=== PATIENT | male | born 1950 | race Caucasian/White ===

== ENCOUNTER → 2017-03-31 08:13 | Outpatient (CLI) | payer MEDICARE, OTHER, SELFPAY ==
--- NOTE | 2017-03-31 09:00 | ECHOD_ITS ---
Reason For Study: ARRHYTHMIA Procedure This was a 2D Doppler, Color Flow transthoracic echocardiogram. Exam performed in department. Left Ventricle Normal LV size. Left ventricular systolic function is normal. The estimated ejection fraction is 65 %. No regional wall motion abnormalities noted. Right Ventricle Normal RV size. Normal systolic function. Atria Normal left atrium. Normal right atrium. Mitral Valve Normal mitral valve. Tricuspid Valve Normal tricuspid valve. Aortic Valve Normal aortic valve. Trisinus/trileaflet aortic valve. Pulmonic Valve Normal pulmonic valve. Great Vessels Normal aortic root. The pulmonary artery is normal size. Normal inferior vena cava. Pericardium/Pleural No pericardial effusion. MMode/2D Measurements & Calculations LVIDd: 4.9 cm IVSd: 1.2 cm Ao root diam: 3.3 cm LVIDs: 2.8 cm LVPWd: 0.91 cm LA dimension: 2.8 cm RVDd: 3.4 cm FS: 41.9 % LAV(MOD-bp): 40.3 ml LA A4 area: 14.6 cm2 RA A4 area: 15.6 cm2 LAV(MOD-bp) Indexed: 21.4 ml/m2 LAV(MOD-sp2): 40.7 ml LAV(MOD-sp4): 38.9 ml Doppler Measurements & Calculations MV E max kiran: 68.6 cm/sec LV V1 max: 150.2 cm/sec PA V2 max: 86.5 cm/sec MV A max kiran: 46.4 cm/sec LV V1 max P.0 mmHg MV E/A: 1.5 PI end-d kiran: 95.5 cm/sec Interpretation Summary Normal LV size. Left ventricular systolic function is normal. The estimated ejection fraction is 65 %. Structurally normal valves. Ordering Physician: Marco Antonio Mary Referring Physician: KEMI GLOVER Performed By: Gail Posadas, JAYA, RVT
== END ==
PROVIDERS: Family Provider Family Medicine; PCP Family Medicine; Visit Provider Internal Medicine Cardiovascular Disease
DX: R07.9 Chest pain, unspecified (principal)
CPT/HCPCS: 93306

== ENCOUNTER 2017-04-13 22:07 | Emergency (ER) | payer MEDICARE, OTHER, SELFPAY ==
[2017-04-13 22:09] VITALS: BP 155/91; PULSE 66; RESP 14; TEMP 36.8; O2SAT 97; BMI 26.4
[2017-04-13] MEDS: Tetracaine 0.5% Ophthalmic Bottle 1 DRP EACH EYE (23:40)
[2017-04-13] MEDS: Fluorescein 1 MG STRIP 1 STRIP EACH EYE (23:41)
--- NOTE | 2017-04-14 00:29 | ED.VISSUMM ---
- ER Visit Summary Date of Service: 04/14/17 Chief Complaint: Acute left eye pain while swimming this evening History of Present Illness: The patient is a 66 M who developed acute left eye pain this evening while swimming. He did have his goggles on and contacts place. He has hard contacts. He complains of light sensitivity. He denies headache. He denies nausea vomiting. There is no family history of glaucoma. He denies any other symptoms. Past medical history of hypercholesterolemia Physical Examination: Patient's in obvious discomfort. Pupils equal round reactive. Extraocular muscles intact. He has photophobia to direct light left eye not consensual. There is no APD. He does have a pterygium. Eyes were anesthetized with tetracaine and stained with foreseen. There is obvious corneal defect noted left eye over central visual axis. The conjunctive is slightly injected on the left. Unable to perform slit-lamp exam because the slit-lamp is not working. Unable to assess intraocular pressure as the Min-Pen is nonfunctional. He was unable to see the chart since he did not bring any corrective lenses. With pinhole he had 27 right eye and unable see chart left eye anterior chamber appears normal. Unable to see the fundi on the left secondary to corneal defect. Test Results: Visual acuity as documented in the physical portion of the exam. Emergency Department Course and Treatment: Patient was treated with erythromycin ophthalmic ointment. Follow-up with ophthalmology if no improvement in 12-24 hours. Treatment Plan: Outpatient ophthalmology follow-up if no improvement in 12-24 hours Disposition: Discharge to home Impression: Left eye pain secondary to corneal abrasion This note was generated with [employer] dictation software. It may contain incorrect words, spelling, and punctuation that were not noted in review of the chart prior to signing ED Disposition - Plan for ED Patient: Disposition: Home or Assisted Living Chief Complaint: Eye Problem Instructions: Corneal Injury Referrals: Yovany Delarosa MD [Primary Care Provider] - Vishnu Agudelo MD [STAFF PHYSICIAN] - 1-2 Days if not improving
--- NOTE | 2017-04-14 00:35 | ED.DCSUM_ITS ---
- ER Visit Summary Date of Service: 04/14/17 Chief Complaint: Acute left eye pain while swimming this evening History of Present Illness: The patient is a 66 M who developed acute left eye pain this evening while swimming. He did have his goggles on and contacts place. He has hard contacts. He complains of light sensitivity. He denies headache. He denies nausea vomiting. There is no family history of glaucoma. He denies any other symptoms. Past medical history of hypercholesterolemia Physical Examination: Patient's in obvious discomfort. Pupils equal round reactive. Extraocular muscles intact. He has photophobia to direct light left eye not consensual. There is no APD. He does have a pterygium. Eyes were anesthetized with tetracaine and stained with foreseen. There is obvious corneal defect noted left eye over central visual axis. The conjunctive is slightly injected on the left. Unable to perform slit-lamp exam because the slit-lamp is not working. Unable to assess intraocular pressure as the Min- Pen is nonfunctional. He was unable to see the chart since he did not bring any corrective lenses. With pinhole he had 27 right eye and unable see chart left eye anterior chamber appears normal. Unable to see the fundi on the left secondary to corneal defect. Test Results: Visual acuity as documented in the physical portion of the exam. Emergency Department Course and Treatment: Patient was treated with erythromycin ophthalmic ointment. Follow-up with ophthalmology if no improvement in 12-24 hours. Treatment Plan: Outpatient ophthalmology follow-up if no improvement in 12-24 hours Disposition: Discharge to home Impression: Left eye pain secondary to corneal abrasion This note was generated with [employer] dictation software. It may contain incorrect words, spelling, and punctuation that were not noted in review of the chart prior to signing ED Disposition - Plan for ED Patient: Disposition: Home or Assisted Living Chief Complaint: Eye Problem Instructions: Corneal Injury Referrals: Yovany Delarosa MD [Primary Care Provider] - Vishnu Agudelo MD [STAFF PHYSICIAN] - 1-2 Days if not improving
[2017-04-14] MEDS: Erythromycin Base 1 OPTH.TUBE 1 APPLIC LEFT EYE (00:45)
[2017-04-14 00:47] VITALS: O2SAT 18
== END 2017-04-14 01:02 | disposition home or self-care (01) ==
LOC: ED 04-14 00:55
PROVIDERS: Emergency Provider Emergency Medicine; Family Provider Family Medicine; PCP Family Medicine
DX: S05.02XA Injury of conjunctiva and corneal abrasion without foreign body, left eye, initial encounter (principal); H11.002 Unspecified pterygium of left eye; X58.XXXA Exposure to other specified factors, initial encounter; Y93.9 Activity, unspecified; Y92.9 Unspecified place or not applicable; Y99.9 Unspecified external cause status; E78.00 Pure hypercholesterolemia, unspecified; Z79.82 Long term (current) use of aspirin; Z79.899 Other long term (current) drug therapy
CPT/HCPCS: 99283

== ENCOUNTER → 2018-02-11 07:54 | Outpatient (CLI) | payer MEDICARE, OTHER, SELFPAY ==
[2018-02-11 10:35] LABS: Anion Gap 7 (5-15); BUN 17 mg/dL (7-18); Calcium,Total 8.6 mg/dL (8.5-10.1); Chloride 106 mmol/L (98-107); Cholesterol 178 mg/dL (200); EST Glomerular Filtration Rate 79 mL/min (>60); Est Glom Filt Rate - Afr Amer 96 mL/min (>60); Glucose 96 mg/dL (74-106); High Density Lipoprotein 52 mg/dL; PSA,Total - Annual Screen 1.56 ng/mL (0.00-4.00); Potassium 4.4 mmol/L (3.5-5.1); Sodium Level 143 mmol/L (136-145); Triglycerides 93 mg/dL; Very Low Density Lipoprotein 19 mg/dL (5-40)
== END ==
PROVIDERS: Family Provider Family Medicine; PCP Family Medicine; Referring Provider Family Medicine; Visit Provider Family Medicine
DX: E78.00 Pure hypercholesterolemia, unspecified (principal); Z12.5 Encounter for screening for malignant neoplasm of prostate; Z83.3 Family history of diabetes mellitus
CPT/HCPCS: 36415; 80048; 80061; 84153; G0103

== ENCOUNTER 2018-05-12 06:05 | Day surgery (SDC) | payer MEDICARE, OTHER, SELFPAY ==
[2018-05-04 09:53] VITALS: BMI 26.1
--- NOTE | 2018-05-04 11:23 | RAD_ITS ---
STUDY: X-RAY CHEST REASON FOR EXAM: Male, 67 years old. Preop for catheter insertion TECHNIQUE: PA and lateral views of the chest. COMPARISON: None. FINDINGS: The lungs are clear and expanded. There is no demonstrated pleural abnormality. Normal size heart. Normal mediastinum and carol. Normal visualized pulmonary arteries. Normal visualized aortic arch and descending thoracic aorta. Normal visualized thoracic spine. Normal visualized ribs, clavicles, and shoulders. There is no demonstrated abnormality of the visualized soft tissue structures of the upper abdomen. RAD/Chest PA and Lateral IMPRESSION: Normal x-ray examination of the chest. Electronically Signed: Geoffrey Tariq DO at 10:52 EDT Tel , Service support ,
[2018-05-04 12:46] LABS: Absolute Lymphocyte Count 1.04 X10^3/ul (0.83-4.51); Absolute Neutrophil Count 3.5 X10^3/uL (2.0-7.7); Basophil# 0.01 X10^3/uL; Basophil% 0.2 % (0-1); Eosinophil# 0.12 X10^3/uL; Eosinophils% 2.3 % (0-5); Hematocrit 42.6 % (40-54); Lymphocyte # 1.04 X10^3/ul (4.0); Lymphocyte % 20.4 % (19-41); Mean Corp Hgb Conc 32.9 g/gl (32-36); Mean Corpuscular Hgb 32.2 pg (27.0-32.0); Mean Corpuscular Volume 97.9 fL (80-94); Mean Platelet Vol. 8.8 fl (6.2-12.0); Monocyte# 0.45 X10^3/uL; Monocyte% 8.8 % (0-10); Neutrophil # 3.48 X10^3/uL (2.7-7.7); Neutrophil % 68.1 % (47-70); Platelet Count 286 K/mm3 (150-450); RBC Distribution Width CV 12.4 % (11.6-14.6); Red Blood Count 4.35 M/mm3 (4.6-6.2); White Blood Count 5.1 K/mm3 (4.4-11.0)
[2018-05-04 12:47] LABS: POSITIVE COUNT NO; POSITIVE DIFFERENTIAL NO; POSITIVE MORPHOLOGY NO
[2018-05-04 13:26] LABS: Anion Gap 5 (5-15); BUN 15 mg/dL (7-18); BUN/Creat Ratio 17.4 RATIO (10-20); Calcium,Total 8.8 mg/dL (8.5-10.1); Chloride 105 mmol/L (98-107); Creatinine, Serum 0.86 mg/dL (0.70-1.30); EST Glomerular Filtration Rate 94 mL/min (>60); Est Glom Filt Rate - Afr Amer 114 mL/min (>60); Glucose 79 mg/dL (74-106); Potassium 4.4 mmol/L (3.5-5.1); Sodium Level 137 mmol/L (136-145)
[2018-05-11 07:34] VITALS: BMI 26.1
--- NOTE | 2018-05-12 09:16 | CL.D_ITS ---
Patient Name: FEI GOMEZ Study Date: 05/12/2018 Performing: Marco Antonio Mary MD Ht: 68.11 inches 173 cm : 1950 Wt: 171.96 lbs 78 kg Age: 67 Gender: male BSA: 1.92 PROCEDURE(S) PERFORMED BP85-IIB/COR/LV CLINICAL PROFILE AND INDICATIONS Indications: Suspected CAD Heart Failure: None Stress/Imaging Stress/Image Study Performed: No CAD Presentations: Symptom unlikely to be ischemic. 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 The risks and benefits of the procedure as well as a full d escription of our services here and current unavailability of surgical backup were fully explained to the patient and/or their significant other prior to the catheterization. The Timeout was completed, verifying the correct patient and procedure. The patient's procedural site was prepped and draped in the usual fashion. Local anesthetic was given subcutaneously to right groin region with Lidocaine 2%. Using a modified Seldinger technique, arterial access was obtained via the right femoral artery, a 5 Fr sheath was inserted. Left Coronary Artery selective angiography was performed in multiple views u sing a 5 Fr. JL4 catheter. Right Coronary Artery selective angiography was then performed in multiple views using a 5 Fr. 3DRC (Quinton) catheter. Left Ventriculography was performed in ANGULO projection using a 5 Fr. Pigtail catheter. LV to AO pullback pressures were then recorded.The arterial sheath was pulled and a Mynx closure device was deployed for hemostasis, groin held by Umu campoverde CORONARY ANGIOGRAPHY DOMINANCE: Right Dominant LEFT HEART ASSESSMENT Left Ventricular Ejection Fraction: by LV Gram 55 % Normal LV wall motion Normal Left Ventricular systolic function LEFT MAIN: Angiographically normal LEFT ANTERIOR DECENDING ARTERY: No significant disease noted CIRCUMFLEX ARTERY: OM 1: Distal - 70 distal before bifurcation % Stenosis RIGHT CORONARY ARTERY: No significant disease noted COMPLICATIONS No Complications PROCEDURE MEDICATIONS Versed 1 mg IV Oxygen: 2 L/min via nasal cannula SUMMARY OF HEMODYNAMIC DATA Time AIR REST ECG 06:50:11 AO 112/59 (81) SA 07:37:05 LV 100/0, 10 07:44:15 LV 100/0, 7 07:44:22 LV 87/0, 10 07:45:43 LV 95/0, 12 07:46:00 LV 101/0, 12 07:46:02 LVp 105/-2, 10 07:46:06 AOp 110/56 (78) 07:46:12 AO 112/52 (77) 07:46:48 Signed By Marco Antonio Mary MD On 05/12/2018 9:15:43 AM Marco Antonio Mary MD
== END 2018-05-12 11:04 | disposition home or self-care (01) ==
LOC: CLSP 06:06
PROVIDERS: Family Provider Family Medicine; PCP Family Medicine; Referring Provider Internal Medicine Cardiovascular Disease; Visit Provider Internal Medicine Cardiovascular Disease
DX: I25.10 Atherosclerotic heart disease of native coronary artery without angina pectoris (principal); I45.10 Unspecified right bundle-branch block; J44.9 Chronic obstructive pulmonary disease, unspecified; E78.5 Hyperlipidemia, unspecified; Z79.02 Long term (current) use of antithrombotics/antiplatelets; Z79.82 Long term (current) use of aspirin; Z79.899 Other long term (current) drug therapy
CPT/HCPCS: 36415; 71046; 80048; 85025; 93458; 99152; 99153; C1760; J7040; Q9967

== ENCOUNTER → 2018-12-23 10:21 | Outpatient (CLI) | payer MEDICARE, OTHER, SELFPAY ==
[2018-12-23 08:13] VITALS: BMI 25.8
[2018-12-23 11:57] LABS: AST(SGOT) 27 U/L (15-37); Alanine Aminotransfer ALT/SGPT 36 U/L (16-61); Albumin, Serum 3.7 g/dL (3.2-5.0); Alkaline Phosphatase 69 U/L (45-117); Bilirubin, Direct 0.12 mg/dL (0.00-0.30); Cholesterol 136 mg/dL (200); Globulin 3.4 g/dL (2.2-4.2); High Density Lipoprotein 56 mg/dL; Protein, Total 7.1 g/dL (6.4-8.2); Triglycerides 70 mg/dL; Very Low Density Lipoprotein 14 mg/dL (5-40)
== END ==
PROVIDERS: Family Provider Family Medicine; PCP Family Medicine; Referring Provider Internal Medicine Cardiovascular Disease; Visit Provider Internal Medicine Cardiovascular Disease
DX: I25.10 Atherosclerotic heart disease of native coronary artery without angina pectoris (principal); E78.5 Hyperlipidemia, unspecified
CPT/HCPCS: 36415; 80061; 80076

== ENCOUNTER → 2019-02-17 09:18 | Outpatient (CLI) | payer MEDICARE, OTHER, SELFPAY ==
[2018-12-23 08:13] VITALS: BMI 25.8
[2019-02-17 10:10] LABS: Absolute Lymphocyte Count 0.94 X10^3/uL (0.83-4.51); Basophil# 0.03 X10^3/uL; Basophil% 0.8 % (0-1); Eosinophil# 0.22 X10^3/uL; Hematocrit 41.7 % (40-54); Hemoglobin 13.9 g/dL (13.0-16.5); Lymphocyte # 0.94 X10^3/ul (4.0); Lymphocyte % 25.6 % (19-41); Mean Corp Hgb Conc 33.3 g/dL (32-36); Mean Corpuscular Hgb 32.9 pg (27.0-32.0); Mean Corpuscular Volume 98.6 fL (80-94); Mean Platelet Vol. 8.7 fl (6.2-12.0); Monocyte# 0.46 X10^3/uL; Monocyte% 12.5 % (0-10); NRBC Flagged by Analyzer 0 % (0-5); Neutrophil # 2.01 X10^3/uL (2.7-7.7); Neutrophil % 54.8 % (47-70); Platelet Count 255 K/mm3 (150-450); RBC Distribution Width CV 12.8 % (11.6-14.6); RBC Distribution Width SD 45.5 fl (35.1-43.9); Red Blood Count 4.23 M/mm3 (4.6-6.2); White Blood Count 3.7 K/mm3 (4.4-11.0)
[2019-02-17 10:49] LABS: Anion Gap 5 (5-15); BUN 16 mg/dL (7-18); BUN/Creat Ratio 16.7 RATIO (10-20); Calcium,Total 8.8 mg/dL (8.5-10.1); Chloride 107 mmol/L (98-107); Creatinine, Serum 0.96 mg/dL (0.70-1.30); EST Glomerular Filtration Rate 83 mL/min (>60); Est Glom Filt Rate - Afr Amer 101 mL/min (>60); Ferritin 32 ng/mL (26-388); Glucose 87 mg/dL (74-106); Iron 60 ug/dL (65-175); Iron Binding Capacity,Total 346 ug/dL (250-450); Potassium 4.2 mmol/L (3.5-5.1); Sodium Level 140 mmol/L (136-145); Thyroid Stim Hormone (TSH) 1.71 uIU/mL (0.358-3.74)
== END ==
PROVIDERS: Family Provider Family Medicine; PCP Family Medicine; Referring Provider Family Medicine; Visit Provider Family Medicine
DX: Z00.00 Encounter for general adult medical examination without abnormal findings (principal); E78.5 Hyperlipidemia, unspecified; E61.1 Iron deficiency; Z12.5 Encounter for screening for malignant neoplasm of prostate
CPT/HCPCS: 36415; 80048; 82728; 83540; 83550; 84153; 84443; 85025; G0103

== ENCOUNTER → 2019-04-07 11:55 | Outpatient (CLI) | payer MEDICARE, OTHER, SELFPAY ==
[2018-12-23 08:13] VITALS: BMI 25.8
--- NOTE | 2019-04-07 11:59 | RAD_ITS ---
STUDY: X-RAY CHEST REASON FOR EXAM: Male, 68 years old. DRY COUGH X SEVERAL WEEKS, BRONCHITIS TECHNIQUE: Frontal and lateral views of the chest COMPARISON: 04 May 2018 FINDINGS: The lungs are clear and expanded. There is no demonstrated pleural abnormality. Normal size heart. Normal mediastinum and carol. Normal visualized pulmonary arteries. Normal visualized aortic arch and descending thoracic aorta. Normal visualized thoracic spine. Normal visualized ribs, clavicles, and shoulders. There is no demonstrated abnormality of the visualized soft tissue structures of the upper abdomen. RAD/Chest PA and Lateral IMPRESSION: Normal x-ray examination of the chest. Electronically Signed: Andrea Loera, at 19:13 EST Tel , Service support ,
== END ==
PROVIDERS: PCP Family Medicine; Referring Provider Family Medicine; Visit Provider Family Medicine
DX: J20.9 Acute bronchitis, unspecified (principal)
CPT/HCPCS: 71046

== ENCOUNTER 2019-10-01 09:14 | Emergency (ER) | payer MEDICARE, OTHER, SELFPAY ==
[2018-12-23 08:13] VITALS: BMI 25.8
[2019-10-01 09:15] VITALS: BP 137/99; PULSE 75; RESP 18; TEMP 36.8; O2SAT 98; BMI 25.7
--- NOTE | 2019-10-01 09:34 | EKG12_ITS ---
Test Reason : NEURO Blood Pressure : / mmHG Vent. Rate : 068 BPM Atrial Rate : 068 BPM P-R Int : 156 ms QRS Dur : 128 ms QT Int : 392 ms P-R-T Axes : 051 -41 024 degrees QTc Int : 416 ms Normal sinus rhythm Left axis deviation Right bundle branch block Abnormal ECG Confirmed by SRAVAN BOURGEOIS, MARCOS ([id number]), non linear editor ZULAY YANEZ ([id number]) on 10/03/2019 2:37:22 PM Referred By: SORAYA Confirmed By:MARCOS HINSON MD
--- NOTE | 2019-10-01 09:34 | RAD_ITS ---
STUDY: X-RAY CHEST REASON FOR EXAM: Male, 68 years old. STROKE PROTOCOL -- head and neck pain -- no chest complaints TECHNIQUE: Single AP portable view of the chest. COMPARISON: Prior comparison studies are not available for review at this time. FINDINGS: The lungs are clear and expanded. There is no demonstrated pleural abnormality. Normal size heart. Normal mediastinum and carol. Normal visualized pulmonary arteries. Normal visualized aortic arch and descending thoracic aorta. There are mild degenerative changes in the thoracic spine. Normal visualized ribs, clavicles, and shoulders. There is no demonstrated abnormality of the visualized soft tissue structures of the upper abdomen. RAD/Chest 1 View IMPRESSION: No active pulmonary disease. Electronically Signed: Adonay Bowman MD at 11:13 EDT Tel , Service support ,
--- NOTE | 2019-10-01 09:34 | CT_ITS ---
STUDY: CT BRAIN WITHOUT CONTRAST REASON FOR EXAM: Male, 68 years old. Head and neck injury, imbalance. RADIATION DOSAGE (If Supplied By Facility): CTDIvol = ( 44.99 ) mGy, DLP = ( 812.98 ) mGycm TECHNIQUE: Transaxial CT imaging of the brain was performed without administration of intravenous contrast material. Individualized dose optimization techniques were used for this CT. COMPARISON: No relevant priors. FINDINGS: Normal soft tissue structures. Normal calvarium. Normal size ventricles and extra-axial spaces for the patient''s age. There are areas of decreased attenuation within the white matter tracts of the supratentorial brain, consistent with microvascular disease changes. Normal basal ganglia and thalami. Normal brainstem. Normal cerebellum. There is no intracranial hemorrhage. There are no findings of an acute ischemic infarction. Normal visualized paranasal sinuses. CT/Brain/Head without Contrast IMPRESSION: No acute intracranial process. N.B. : The above information has been verbally conveyed by Adonay Bowman MD to Mushtaq Larson MD, on 10/01/2019 09:53:07 (ET). Electronically Signed: Adonay Bowman MD at 9:54 EDT Tel , Service support ,
--- NOTE | 2019-10-01 09:35 | CT_ITS ---
STUDY: CTA HEAD AND NECK WITH CONTRAST REASON FOR EXAM: Male, 68 years old. In the neck injury, imbalance, possible dissection. RADIATION DOSAGE (If Supplied By Facility): CTDIvol = ( 21.52 ) mGy, DLP = ( 737.28 ) mGycm TECHNIQUE: CT angiography was performed with a multi-detector CT scanner. Data acquisition was obtained from the skull base through the vertex following intravenous administration of IV [id number] 100ML. MIP images were reconstructed from the axial data set. Post-processing of the angiographic images was performed, with multiplanar reformation and 3D reconstruction. Individualized dose optimization techniques were used for this CT. COMPARISON: No relevant priors. FINDINGS: Normal bilateral petrous carotid arteries. There is calcified plaque formation of the right cavernous carotid artery, without a cross-sectional luminal stenosis. There is calcified plaque formation of the left cavernous carotid artery, with a moderate stenosis (50-75%). Normal right A1 segments of the anterior cerebral artery. There is hypoplastic development of the left A1 segment of the anterior cerebral arteries with an atretic but intact artery. Normal intact anterior communicating artery (ACOM). Normal bilateral A2 segments of the anterior cerebral arteries. Normal right M1 and M2 segments of the middle cerebral arteries, with a normal M1 bifurcation. Normal left M1 and M2 segments of the middle cerebral arteries, with a normal M1 bifurcation. There is non-visualization of the right posterior communicating artery (PCOM). There is non-visualization of the left posterior communicating artery (PCOM). Normal bilateral vertebral arteries. Normal basilar artery with a normal basilar bifurcation. The visualized bilateral superior cerebellar (SCA) arteries are normal. There is no demonstrated definite aneurysm of the [place]. AORTIC ARCH: Normal visualized aortic arch. Normal origins of the brachiocephalic, left common carotid, and left subclavian arteries. RIGHT CAROTID ARTERIES: Normal right common carotid artery (CCA). Normal right common carotid bulb. Normal origin of the right internal carotid (ICA) artery without a hemodynamically significant stenosis. Normal visualized cervical portion of the right internal carotid artery. Normal origin of the right external carotid artery (ECA). LEFT CAROTID ARTERIES: Normal left common carotid artery (CCA). Normal left common carotid bulb. Normal origin of the left internal carotid (ICA) artery without a hemodynamically significant stenosis. Normal visualized cervical portion of the left internal carotid artery. Normal origin of the left external carotid artery (ECA). VERTEBRAL ARTERIES: Normal bilateral vertebral arteries. CT/CTA Head AND Neck W/ Contrast IMPRESSION: 1. 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 2. 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 3. Unremarkable common and internal carotid arteries without evidence of dissection or significant stenosis. 4. Patent bilateral vertebral arteries. N.B. : The above information has been verbally conveyed by Adonay Bowman MD to Mushtaq Larson MD, on 10/01/2019 10:05:55 (ET). Electronically Signed: Adonay Bowman MD at 10:08 EDT Tel , Service support ,
--- NOTE | 2019-10-01 09:42 | NURSING ---
FACESHEET FAXED TO [facility]
[2019-10-01 09:46] VITALS: BP 144/81; PULSE 84; RESP 24; O2SAT 98
[2019-10-01 09:48] LABS: Absolute Neutrophil Count 5.8 X10^3/uL (2.0-7.7); Basophil# 0.01 X10^3/uL; Basophil% 0.1 % (0-1); Eosinophil# 0.17 X10^3/uL; Eosinophils% 2.2 % (0-5); Hematocrit 38.3 % (40-54); Hemoglobin 12.8 g/dL (13.0-16.5); Lymphocyte % 12.7 % (19-41); Mean Corp Hgb Conc 33.4 g/dL (32-36); Mean Corpuscular Hgb 33.2 pg (27.0-32.0); Mean Corpuscular Volume 99.2 fL (80-94); Mean Platelet Vol. 8.6 fl (6.2-12.0); Monocyte# 0.83 X10^3/uL; Monocyte% 10.6 % (0-10); NRBC Flagged by Analyzer 0 % (0-5); Neutrophil # 5.82 X10^3/uL (2.7-7.7); Platelet Count 227 K/mm3 (150-450); RBC Distribution Width SD 43.8 fl (35.1-43.9); Red Blood Count 3.86 M/mm3 (4.6-6.2); White Blood Count 7.9 K/mm3 (4.4-11.0)
--- NOTE | 2019-10-01 09:52 | ED.VIS.STROK ---
History of Present Illness Chief Complaint: Headache Informant: Patient, Significant Other Onset: Today - Patient reports slurred speech this morning at 0815. He also reports problem with his balance and had trouble walking. After I walked out of the room and initiated the stroke order set his nurse informed that the believes he may have had symptoms at 645 this morning. Patient did not feel he had any problems with his speech upon awakening or prior to 0815., Days - ThursdaySeptember 26. Context: Sudden Onset Timing: Continuous - Pain in the posterior neck and occipital area has been present since Thursday. Quality and Location: Slurred Speech Onset: Previously documented Current Severity: Mild Maximum Severity: Mild Worsened by: Uncertain Relieved by: Nothing Associated Symptoms: Headache Narrative: Patient is a 68-year-old male who presents to triage with chief complaint of posterior neck pain and occipital headache. The neck pain started ThursdaySeptember 26 after he mowed a steep incline on tractor. He denies direct trauma. He did have an unsteady ride. He reported difficulty sleeping. He did see his primary care physician was placed on a muscle relaxant. The neck pain and headache has not resolved since onset. This morning he described dizziness which when asked to specify he define trouble with his balance. He also had trouble using his fingers with fine coordination. He felt his speech was normal upon awakening early this morning. He and his initially stated speech was slurred at 0815. They state it is better. After I had completed my history and physical I was made aware that believes his slurred speech may have started at 0645. Patient denies double vision blurred vision or loss of vision. Patient denies cardiac or respiratory symptoms. He denies symptoms. He is not on an anticoagulant. There is no history of direct trauma to the head or neck. Prior similar symptoms: No Recent Illness/Hospitalization: Yes - Past Medical History (1) Atherosclerosis of coronary artery of [place] heart without angina pectoris Status: Chronic Comment: Distal circumflex disease in a small vessel (2) Hyperlipidemia Status: Chronic Past Medical History - Allergies and Home Meds Allergies/Adverse Reactions: Allergies No Known Allergies Allergy (Verified 10/01/19 09:15) Primary Care Physician: Yovany Rios MD [Primary Care Provider] - Prior records reviewed: Yes Surgical History: noncontributory Lives: Spouse/ Significant Other Smoking Status: Never smoker Alcohol: None Drugs: None Review of Systems General: Denies: Chills, Fever, Malaise Eyes: Denies: Visual changes - bilaterally, Blurred Vision - bilaterally, Diplopia ENT: Denies: Bilateral ear pain, Rhinorrhea, Sore throat Cardiovascular: Denies: Chest pain, Palpitations Respiratory: Denies: Dyspnea, Cough, Sputum, Dyspnea on exertion Gastrointestinal: Denies: Abdominal pain, Nausea, Vomiting, Diarrhea Genitourinary: Denies: Dysuria, Hematuria, Frequency Musculoskeletal: Denies: Myalgias, Arthralgias, Neck pain, Back pain Skin: Denies: Rash, Wounds Neurological: Reports: Headache. Denies: Weakness, Parasthesia, Numbness, -, - - Slurred speech and problems with balance this morning. Endocrine: Denies: Polyuria, Polydipsia Hematologic: Denies: Easy bruising, Easy bleeding STROKE Vital Signs/Narrative: Vital Signs Temp Pulse Resp BP Pulse Ox 10/01/19 09:15 98.3 F 75 18 137/99 H 98 Inital Vital Signs reviewed: Yes - NIHSS Initial 1a Level of Consciousness: 0 1b LOC Questions (Score 2 if aphasic/stupor): 0 1c LOC Commands (Only score 1st attempt): 0 2 Best Gaze (If aphasic, use reflexive mvmts.): 0 3 Visual: 0 4 Facial Palsy: 0 5 Motor Arm Right (UN = amputation/fusion): 0 5 Motor Arm Left: 0 6 Motor Leg Right: 0 6 Motor Leg Left: 0 7 Limb ataxia (Only + if out of proportion): 0 8 Sensory (Aphasia/stupor=0 or 1, coma=2): 0 10 Dysarthria (mute, coma=2, intubated=UN): 1 11 Extinction and Inattention (only scored if +): 0 Total Score: 1 General: Well nourished, Well developed Head: Normocephalic, Atraumatic Eyes: Perrl, EOMI. Negative for: Pale conjunctiva, Scleral icterus ENT: Moist mucous membranes, No rhinorrhea Neck: Supple, Nontender, No lymphadenopathy, No JVD Cardiovascular: Regular rate, Regular rhythm, No murmurs, Normal S1, Normal S2 Respiratory: No distress, CTA bilaterally Abdomen: Soft, Nontender, Nondistended, Normal bowel sounds, No masses Back: Nontender, Normal Inspection Extremities: Nontender, No edema Skin: Normal color, No rash Neurological: Alert, Oriented x3, Cranial nerves II-XII grossly intact, Normal Strength, Normal Sensation, - - Finger-nose to finger and cajx-sy-eqmu is normal.. Negative for: Normal Gait - And then gait is abnormal. He has difficulty maintaining his balance and appears to preferentially fall to the right. Psychological: Normal affect Diagnostic/Tx/Re-eval Impressions Brain CT 10/01/19 09:34 IMPRESSION: No acute intracranial process. N.B. : The above information has been verbally conveyed by Adonay Bowman MD to Mushtaq Larson MD, on 10/01/2019 09:53:07 (ET). Electronically Signed: Adonay Bowman MD at 9:54 EDT Tel , Service support , ADDENDUM: 10/01/19 1001 IMPRESSION: No acute intracranial process. N.B. : The above information has been verbally conveyed by Adonay Bowman MD to Mushtaq Larson MD, on 10/01/2019 09:53:07 (ET). Electronically Signed: Adonay Bowman MD at 9:54 EDT Tel , Service support , Head/Neck CTA 10/01/19 09:35 IMPRESSION: 1. 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 2. 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 3. Unremarkable common and internal carotid arteries without evidence of dissection or significant stenosis. 4. Patent bilateral vertebral arteries. N.B. : The above information has been verbally conveyed by Adonay Bowman MD to Mushtaq Larson MD, on 10/01/2019 10:05:55 (ET). Electronically Signed: Adonay Bowman MD at 10:08 EDT Tel , Service support , 10/01/19 09:34 Brain/Head without Contrast [CT] Stat Chest 1 View [RAD] Stat 10/01/19 09:35 CTA Head AND Neck W/ Contrast [CT] Stat Laboratory Results 10/01/19 10/01/19 10/01/19 09:40 09:40 09:40 WBC 7.9 RBC 3.86 L Hgb 12.8 L Hct 38.3 L MCV 99.2 H MCH 33.2 H MCHC 33.4 RDW Std Deviation 43.8 RDW Coeff of Epifanio 12.0 Plt Count 227 MPV 8.6 Immature Gran % (Auto) 0.400 Neut % (Auto) 74.0 H Lymph % (Auto) 12.7 L Bay % (Auto) 10.6 H Eos % (Auto) 2.2 Baso % (Auto) 0.1 Absolute Neuts (auto) 5.8 Absolute Lymphs (auto) 1.00 Nucleated RBC % 0 PT 13.5 INR 1.1 APTT 25.0 Sodium 140 Potassium 4.2 Chloride 108 H Carbon Dioxide 29.0 Anion Gap 3 L BUN 15 Creatinine 0.95 Estim Creat Clear Calc 73.00 Est GFR (MDRD) Af Amer 102 Est GFR (MDRD) Non-Af 84 BUN/Creatinine Ratio 15.8 Glucose 104 Calcium 8.7 Troponin I < 0.015 POC Glucose 10/01/19 09:49 WBC RBC Hgb Hct MCV MCH MCHC RDW Std Deviation RDW Coeff of Epifanio Plt Count MPV Immature Gran % (Auto) Neut % (Auto) Lymph % (Auto) Bay % (Auto) Eos % (Auto) Baso % (Auto) Absolute Neuts (auto) Absolute Lymphs (auto) Nucleated RBC % PT INR APTT Sodium Potassium Chloride Carbon Dioxide Anion Gap BUN Creatinine Estim Creat Clear Calc Est GFR (MDRD) Af Amer Est GFR (MDRD) Non-Af BUN/Creatinine Ratio Glucose Calcium Troponin I POC Glucose 104 - Medical Decision Making Stroke Team Activated: Yes Reviewed Inclusion/Exclusion criteria: Yes Was Patient considered for Endovascular Intervention?: No IV Alteplase (t-PA) Administered: No No contraindications for IV Alteplase (t-PA) administration.: No - Surgeon for dissection Alteplase (t-PA) risks, benefits, alternative discussed: No Differential diagnosis includes adverse response to pain medicine, cervical strain with tension headache, vertebral dissection, TIA/CVA. Stroke order set was initiated. Spoke with Dr. Agee the stroke neurologist from [facility]. He recommends MRI of the brain and neck. There is still a small possibility of dissection since the event occurred Thursday. He does agree with aspirin. Hospitalist was paged for observation status to have MRI of the head and neck. ED Disposition - Plan for ED Patient: Disposition: Acute Care Hospital [facility] Diagnosis: Dysarthria, Balance problem Referrals: Yovany Rios MD [Primary Care Provider] -
[2019-10-01 09:56] VITALS: BP 143/89; BP 144/81; PULSE 77; PULSE 82; RESP 15; RESP 19; O2SAT 97; O2SAT 98
[2019-10-01 09:56] LABS: Bedside Glucose 104 mg/dL (70-110)
[2019-10-01 09:57] LABS: International Normalized Ratio 1.1; Prothrombin Time (Protime)PT. 13.5 SECONDS (11.7-14.9)
[2019-10-01 10:05] VITALS: BP 143/89; PULSE 73; RESP 22; O2SAT 98
[2019-10-01 10:07] LABS: Anion Gap 3 (5-15); BUN 15 mg/dL (7-18); BUN/Creat Ratio 15.8 RATIO (10-20); Calcium,Total 8.7 mg/dL (8.5-10.1); Chloride 108 mmol/L (98-107); Creatinine, Serum 0.95 mg/dL (0.70-1.30); EST Glomerular Filtration Rate 84 mL/min (>60); Est Glom Filt Rate - Afr Amer 102 mL/min (>60); Glucose 104 mg/dL (74-106); Potassium 4.2 mmol/L (3.5-5.1); Sodium Level 140 mmol/L (136-145)
--- NOTE | 2019-10-01 10:18 | NURSING ---
DR ELMORE FOR DR SHELDON
--- NOTE | 2019-10-01 10:23 | MRI_ITS ---
STUDY: MRA NECK WITH AND WITHOUT CONTRAST REASON FOR EXAM: Male, 68 years old. UNSTEADY GAIT, EVALUATE FOR CAROTID DISSECTION TECHNIQUE: 3-D [id number] (TOF) imaging was performed in an 1.5 T MRI scanner. IV DOTAREM 15CC was administered for the contrast enhanced images. COMPARISON: Comparison is made with CTA examination from 10/01/2019 FINDINGS: The origin of the great vessels are patent. Bilateral common carotid arteries are patent. The carotid bifurcations are patent. The extracranial segments of the internal carotid arteries appear patent. Visualized segments of the vertebral arteries are patent. Essentially codominant vertebral arteries are seen. IMPRESSION: No evidence for hemodynamically significant extracranial carotid artery stenosis, dissection or occlusion Electronically Signed: Jacky Hull, at 12:26 EDT Tel , Service support , MRI/MRA Neck WITH and W/O Contrast
--- NOTE | 2019-10-01 10:23 | MRI_ITS ---
STUDY: MRI BRAIN WITHOUT CONTRAST REASON FOR EXAM: Male, 68 years old. UNSTEADY GAIT, EVALUATE FOR CAROTID DISSECTION TECHNIQUE: Standardized multiplanar fat and water weighted pulse sequences were obtained. COMPARISON: None. FINDINGS: No evidence for shift of midline structures, mass effect or compression of ventricles noted. No acute intracranial hemorrhage. No abnormal intracranial fluid collections. The basal cisterns are patent. No discrete mass or ischemic insult in the posterior fossa. Pituitary stalk and optic chiasm are within normal limits. Ventricular system appears unremarkable. Scattered foci of T2/FLAIR hyperintensity in the periventricular and subcortical white matter seen which are nonspecific in imaging appearance however likely related with chronic small vessel disease in light of patient''s provided chronologic age. Mild mucosal thickening of the ethmoid vessels. IMPRESSION: No evidence for acute or subacute ischemic infarction. No evidence for intracranial mass, acute hemorrhage or hydrocephalus. Scattered nonspecific foci of T2/FLAIR hyperintensity in the periventricular and subcortical white matter seen which likely related with chronic small vessel disease. Electronically Signed: Jacky Hull, at 12:21 EDT Tel , Service support , MRI/Brain without Contrast
--- NOTE | 2019-10-01 12:18 | ED.RN ---
per dr corcoran stroke scale is not necessary to continue
--- NOTE | 2019-10-01 12:42 | ED.DCSUM_ITS ---
- ER Visit Summary Date of Service: 10/01/19 Chief Complaint: [] History of Present Illness: The patient is a 68 M [] Physical Examination: [] Test Results: [] Emergency Department Course and Treatment: [] Treatment Plan: [] Disposition: [] Impression: [] This note was generated with [employer] dictation software. It may contain incorrect words, spelling, and punctuation that were not noted in review of the chart prior to signing ED Disposition - Plan for ED Patient: Disposition: Home or Assisted Living Diagnosis: Dysarthria, Balance problem, Adverse drug reaction Instructions: ED Drug React Adverse Other Referrals: Yovany Rios MD [Primary Care Provider] - As Needed Additional Instructions: Discontinue taking the muscle relaxant. Use ice and woik-xwz-bdeekql anti- inflammatory meds (ibuprofen or Aleve).
[2019-10-01 12:54] VITALS: BP 144/85; PULSE 66; RESP 17
== END 2019-10-01 12:55 | disposition home or self-care (01) ==
PROVIDERS: Emergency Provider Emergency Medicine; PCP Family Medicine
DX: R47.1 Dysarthria and anarthria (principal); R26.89 Other abnormalities of gait and mobility; R26.2 Difficulty in walking, not elsewhere classified; T48.205A Adverse effect of unspecified drugs acting on muscles, initial encounter; Y92.9 Unspecified place or not applicable; R51 Headache; M54.2 Cervicalgia; I25.10 Atherosclerotic heart disease of native coronary artery without angina pectoris; E78.5 Hyperlipidemia, unspecified; Z79.82 Long term (current) use of aspirin; Z79.899 Other long term (current) drug therapy
CPT/HCPCS: 70450; 70496; 70498; 70549; 70551; 71045; 80048; 82962; 84484; 85025; 85610; 85730; 93005; 99285; A9575; Q9967; A4216

== ENCOUNTER → 2019-12-27 09:46 | Outpatient (CLI) | payer MEDICARE, OTHER, SELFPAY ==
[2019-12-27 07:31] VITALS: BMI 25.4
[2019-12-27 10:55] LABS: AST(SGOT) 24 U/L (15-37); Alanine Aminotransfer ALT/SGPT 36 U/L (16-61); Albumin, Serum 3.6 g/dL (3.2-5.0); Alkaline Phosphatase 77 U/L (45-117); Bilirubin, Direct 0.12 mg/dL (0.00-0.30); Cholesterol 143 mg/dL (200); Globulin 3.5 g/dL (2.2-4.2); High Density Lipoprotein 45 mg/dL; Protein, Total 7.1 g/dL (6.4-8.2); Triglycerides 89 mg/dL; Very Low Density Lipoprotein 18 mg/dL (5-40)
== END ==
PROVIDERS: PCP Family Medicine; Referring Provider Internal Medicine Cardiovascular Disease; Visit Provider Internal Medicine Cardiovascular Disease
DX: I25.10 Atherosclerotic heart disease of native coronary artery without angina pectoris (principal); E78.5 Hyperlipidemia, unspecified
CPT/HCPCS: 36415; 80061; 80076

== ENCOUNTER → 2020-02-21 09:24 | Outpatient (CLI) | payer MEDICARE, OTHER, SELFPAY ==
[2019-12-27 07:31] VITALS: BMI 25.4
[2020-02-21 12:34] LABS: Absolute Lymphocyte Count 0.82 X10^3/uL (0.83-4.51); Absolute Neutrophil Count 1.8 X10^3/uL (2.0-7.7); Basophil# 0.02 X10^3/uL; Basophil% 0.6 % (0-1); Eosinophil# 0.18 X10^3/uL; Eosinophils% 5.7 % (0-5); Hematocrit 42.3 % (40-54); Hemoglobin 13.4 g/dL (13.0-16.5); Lymphocyte # 0.82 X10^3/ul (4.0); Mean Corp Hgb Conc 31.7 g/dL (32-36); Mean Corpuscular Hgb 32.2 pg (27.0-32.0); Mean Corpuscular Volume 101.7 fL (80-94); Monocyte# 0.32 X10^3/uL; Monocyte% 10.2 % (0-10); NRBC Flagged by Analyzer 0 % (0-5); Neutrophil # 1.81 X10^3/uL (2.7-7.7); Neutrophil % 57.5 % (47-70); Platelet Count 259 K/mm3 (150-450); RBC Distribution Width CV 12.9 % (11.6-14.6); Red Blood Count 4.16 M/mm3 (4.6-6.2); White Blood Count 3.2 K/mm3 (4.4-11.0)
[2020-02-21 12:44] LABS: Ferritin 25 ng/mL (26-388); Iron 197 ug/dL (65-175); Iron Binding Capacity,Total 362 ug/dL (250-450); PSA,Total - Annual Screen 1.77 ng/mL (0.00-4.00)
== END ==
PROVIDERS: PCP Family Medicine; Referring Provider Family Medicine; Visit Provider Family Medicine
DX: E61.1 Iron deficiency (principal); Z12.5 Encounter for screening for malignant neoplasm of prostate
CPT/HCPCS: 36415; 82728; 83540; 83550; 84153; 85025; G0103

== ENCOUNTER → 2020-08-02 07:04 | Outpatient (CLI) | payer MEDICARE, OTHER, SELFPAY ==
[2019-12-27 07:31] VITALS: BMI 25.4
[2020-08-02 09:03] LABS: AST(SGOT) 24 U/L (15-37); Alanine Aminotransfer ALT/SGPT 30 U/L (16-61); Albumin, Serum 3.8 g/dL (3.2-5.0); Alkaline Phosphatase 74 U/L (45-117); Bilirubin, Direct 0.22 mg/dL (0.00-0.30); Cholesterol 146 mg/dL (200); Globulin 3.4 g/dL (2.2-4.2); High Density Lipoprotein 53 mg/dL; Protein, Total 7.2 g/dL (6.4-8.2); Triglycerides 42 mg/dL; Very Low Density Lipoprotein 8 mg/dL (5-40)
== END ==
PROVIDERS: PCP Family Medicine; Referring Provider Internal Medicine Cardiovascular Disease; Visit Provider Internal Medicine Cardiovascular Disease
DX: E78.5 Hyperlipidemia, unspecified (principal); E78.00 Pure hypercholesterolemia, unspecified
CPT/HCPCS: 36415; 80061; 80076

== ENCOUNTER → 2020-08-16 09:50 | Outpatient (CLI) | payer MEDICARE, OTHER, SELFPAY ==
[2019-12-27 07:31] VITALS: BMI 25.4
[2020-08-16 10:29] LABS: Hematocrit 39.2 % (40-54); Hemoglobin 12.9 g/dL (13.0-16.5); Mean Corp Hgb Conc 32.9 g/dL (32-36); Mean Corpuscular Hgb 31.4 pg (27.0-32.0); Mean Corpuscular Volume 95.4 fL (80-94); Mean Platelet Vol. 8.5 fl (6.2-12.0); Platelet Count 237 K/mm3 (150-450); Red Blood Count 4.11 M/mm3 (4.6-6.2); White Blood Count 3.2 K/mm3 (4.4-11.0)
[2020-08-16 10:55] LABS: Anion Gap 4 (5-15); BUN 19 mg/dL (7-18); BUN/Creat Ratio 19.7 RATIO (10-20); Calcium,Total 8.3 mg/dL (8.5-10.1); Chloride 103 mmol/L (98-107); Creatinine, Serum 0.96 mg/dL (0.70-1.30); EST Glomerular Filtration Rate 82 mL/min (>60); Est Glom Filt Rate - Afr Amer 100 mL/min (>60); Glucose 100 mg/dL (74-106); Potassium 4.4 mmol/L (3.5-5.1); Sodium Level 137 mmol/L (136-145)
[2020-08-16 17:04] LABS: Thyroid Stim Hormone (TSH) 1.84 uIU/mL (0.358-3.74); Troponin-I HS 6.3 pg/mL (3.0-78.5)
== END ==
PROVIDERS: Physician Assistant Medical; PCP Family Medicine; Visit Provider Internal Medicine Cardiovascular Disease
DX: E78.5 Hyperlipidemia, unspecified (principal); I25.10 Atherosclerotic heart disease of native coronary artery without angina pectoris; I45.10 Unspecified right bundle-branch block; M54.2 Cervicalgia; R53.83 Other fatigue; R07.9 Chest pain, unspecified
CPT/HCPCS: 36415; 80048; 84443; 84484; 85027

== ENCOUNTER → 2020-08-23 06:11 | Outpatient (CLI) | payer MEDICARE, OTHER, SELFPAY ==
[2020-08-16 13:03] VITALS: BMI 26.3
--- NOTE | 2020-08-23 12:00 | STRESSREP_ITS ---
Stress Test Report Exercise myocardial perfusion stress test. 69-year-old male with a history of chest pain. Stress protocol: Resting EKG demonstrates sinus bradycardia with a rate of 47 bpm normal intervals are noted resting blood pressure is 110/78 mmHg. The patient exercised according to regular Nick protocol for total duration of 10 minutes and 15 seconds. The maximum heart rate attained was 148 bpm which was 97% of maximum predicted heart rate the maximum workload was 12.1 metabolic equivalents. At rest there were no ST or T wave changes noted to suggest ischemia and at peak exercise upsloping ST changes were noted with did not meet the criteria for ischemia. No clinical angina was noted the test was terminated due to the target heart rate being achieved. The peak blood pressure was 160/80 mmHg which is a normal blood pressure response to exercise. No arrhythmias were noted. Myocardial perfusion protocol. 11.9 mCi of technetium 99m sestamibi was injected at rest. The patient exercised according to regular Nick protocol. At peak exercise 34.8 mCi of technetium 99m sestamibi was injected stress images were obtained stress and res t images were reconstructed and compared in the short axis. Gated images were also obtained. Perfusion SPECT analysis: Review of the stress images demonstrate normal uptake of tracer noted in all ar eas of the myocardium. The resting images similarly demonstrate normal uptake of tracer noted in all areas of the myocardium. No areas of reversibility are noted to suggest ischemia and no previous infarct is noted. Gated SPECT analysis: The gated ejection fraction is 60%. Conclusion: Normal exercise myocardial perfusion stress test at a high workload. Preserved ejection fraction.
== END ==
PROVIDERS: PCP Family Medicine; Referring Provider Physician Assistant Medical; Visit Provider Physician Assistant Medical
DX: I25.10 Atherosclerotic heart disease of native coronary artery without angina pectoris (principal); M54.2 Cervicalgia; R53.83 Other fatigue
CPT/HCPCS: 78452; 93017; A9500; A4216

== ENCOUNTER → 2020-08-28 08:19 | Outpatient (CLI) | payer MEDICARE, OTHER, SELFPAY ==
[2020-08-16 13:03] VITALS: BMI 26.3
[2020-08-28 10:24] LABS: Absolute Lymphocyte Count 0.87 X10^3/uL (0.83-4.51); Absolute Neutrophil Count 1.9 X10^3/uL (2.0-7.7); Basophil# 0.01 X10^3/uL; Basophil% 0.3 % (0-1); Eosinophil# 0.13 X10^3/uL; Eosinophils% 3.8 % (0-5); Hematocrit 42.3 % (40-54); Hemoglobin 13.5 g/dL (13.0-16.5); Lymphocyte # 0.87 X10^3/ul (0.83-4.51); Lymphocyte % 25.4 % (19-41); Mean Corp Hgb Conc 31.9 g/dL (32-36); Mean Platelet Vol. 8.6 fl (6.2-12.0); Monocyte# 0.48 X10^3/uL; NRBC Flagged by Analyzer 0 % (0-5); Neutrophil # 1.92 X10^3/uL (2.7-7.7); Neutrophil % 56.2 % (47-70); Platelet Count 269 K/mm3 (150-450); RBC Distribution Width CV 13.2 % (11.6-14.6); RBC Distribution Width SD 47.2 fl (35.1-43.9); Red Blood Count 4.36 M/mm3 (4.6-6.2); White Blood Count 3.4 K/mm3 (4.4-11.0)
[2020-08-28 11:45] LABS: Ferritin 16 ng/mL (26-388); Iron 56 ug/dL (65-175); Iron Binding Capacity,Total 398 ug/dL (250-450)
== END ==
PROVIDERS: PCP Family Medicine; Referring Provider Family Medicine; Visit Provider Family Medicine
DX: D64.9 Anemia, unspecified (principal)
CPT/HCPCS: 36415; 82728; 82746; 83540; 83550; 85025

== ENCOUNTER → 2021-01-17 06:42 | Outpatient (CLI) | payer MEDICARE, OTHER, SELFPAY ==
[2021-01-17 07:55] LABS: Absolute Lymphocyte Count 0.48 X10^3/uL (0.83-4.51); Absolute Neutrophil Count 3.7 X10^3/uL (2.0-7.7); Basophil# 0.03 X10^3/uL; Basophil% 0.6 % (0-1); Eosinophils% 2.1 % (0-5); Hematocrit 39.1 % (40-54); Hemoglobin 12.8 g/dL (13.0-16.5); Lymphocyte # 0.48 X10^3/ul (0.83-4.51); Lymphocyte % 9.9 % (19-41); Mean Corp Hgb Conc 32.7 g/dL (32-36); Mean Corpuscular Volume 94.7 fL (80-94); Mean Platelet Vol. 8.7 fl (6.2-12.0); Monocyte# 0.52 X10^3/uL; Monocyte% 10.7 % (0-10); NRBC Flagged by Analyzer 0 % (0-5); Neutrophil % 76.5 % (47-70); POSITIVE DIFFERENTIAL YES; Platelet Count 258 K/mm3 (150-450); RBC Distribution Width CV 12.9 % (11.6-14.6); RBC Distribution Width SD 44.8 fl (35.1-43.9); Red Blood Count 4.13 M/mm3 (4.6-6.2); White Blood Count 4.8 K/mm3 (4.4-11.0)
[2021-01-17 08:11] LABS: Differential Indicated SCAN CRITERIA MET
[2021-01-17 08:25] LABS: AST(SGOT) 19 U/L (15-37); Alanine Aminotransfer ALT/SGPT 33 U/L (16-61); Albumin, Serum 3.6 g/dL (3.2-5.0); Alkaline Phosphatase 77 U/L (45-117); Bilirubin, Direct 0.16 mg/dL (0.00-0.30); Cholesterol 144 mg/dL (200); Globulin 3.6 g/dL (2.2-4.2); High Density Lipoprotein 55 mg/dL; Protein, Total 7.2 g/dL (6.4-8.2); Triglycerides 48 mg/dL; Very Low Density Lipoprotein 10 mg/dL (5-40)
== END ==
PROVIDERS: Physician Assistant Medical; PCP Family Medicine; Referring Provider Internal Medicine Cardiovascular Disease; Visit Provider Internal Medicine Cardiovascular Disease
DX: E78.00 Pure hypercholesterolemia, unspecified (principal)
CPT/HCPCS: 36415; 80061; 80076; 85025

== ENCOUNTER 2021-02-22 09:11 | Outpatient (CLI) | payer MEDICARE, OTHER, SELFPAY ==
[2021-02-22 10:01] LABS: Absolute Lymphocyte Count 0.78 X10^3/uL (0.83-4.51); Absolute Neutrophil Count 1.8 X10^3/uL (2.0-7.7); Basophil# 0.02 X10^3/uL; Basophil% 0.6 % (0-1); Eosinophil# 0.13 X10^3/uL; Eosinophils% 4.1 % (0-5); Hematocrit 41.4 % (40-54); Hemoglobin 13.3 g/dL (13.0-16.5); Lymphocyte # 0.78 X10^3/ul (0.83-4.51); Lymphocyte % 24.4 % (19-41); Mean Corp Hgb Conc 32.1 g/dL (32-36); Mean Corpuscular Hgb 30.6 pg (27.0-32.0); Mean Corpuscular Volume 95.4 fL (80-94); Mean Platelet Vol. 8.7 fl (6.2-12.0); Monocyte# 0.44 X10^3/uL; Monocyte% 13.8 % (0-10); NRBC Flagged by Analyzer 0 % (0-5); Neutrophil # 1.82 X10^3/uL (2.7-7.7); Neutrophil % 56.8 % (47-70); Platelet Count 268 K/mm3 (150-450); RBC Distribution Width CV 13.4 % (11.6-14.6); RBC Distribution Width SD 47.2 fl (35.1-43.9); Red Blood Count 4.34 M/mm3 (4.6-6.2); White Blood Count 3.2 K/mm3 (4.4-11.0)
[2021-02-22 10:41] LABS: Ferritin 16 ng/mL (26-388); Iron 109 ug/dL (65-175); Iron Binding Capacity,Total 372 ug/dL (250-450); PSA,Total - Annual Screen 1.83 ng/mL (0.00-4.00)
== END 2021-02-22 23:59 | disposition short-term general hospital (02) ==
LOC: MFPLAB 09:15
PROVIDERS: PCP Family Medicine; Referring Provider Family Medicine; Visit Provider Family Medicine
DX: E61.1 Iron deficiency (principal); Z12.5 Encounter for screening for malignant neoplasm of prostate
CPT/HCPCS: 36415; 82728; 83540; 83550; 84153; 85025; G0103

== ENCOUNTER → 2021-09-06 | Outpatient (CLI) | payer MEDICARE, OTHER, SELFPAY ==
[2021-09-06 10:04] LABS: Absolute Neutrophil Count 2.2 X10^3/uL (2.0-7.7); Basophil# 0.02 X10^3/uL; Basophil% 0.6 % (0-1); Eosinophil# 0.16 X10^3/uL; Eosinophils% 4.6 % (0-5); Hematocrit 39.2 % (40-54); Hemoglobin 12.9 g/dL (13.0-16.5); Lymphocyte % 20.1 % (19-41); Mean Corp Hgb Conc 32.9 g/dL (32-36); Mean Corpuscular Hgb 32.7 pg (27.0-32.0); Mean Corpuscular Volume 99.5 fL (80-94); Mean Platelet Vol. 8.8 fl (6.2-12.0); Monocyte# 0.38 X10^3/uL; Monocyte% 10.9 % (0-10); NRBC Flagged by Analyzer 0 % (0-5); Neutrophil # 2.21 X10^3/uL (2.7-7.7); Neutrophil % 63.5 % (47-70); Platelet Count 260 K/mm3 (150-450); RBC Distribution Width CV 13.2 % (11.6-14.6); RBC Distribution Width SD 48.9 fl (35.1-43.9); Red Blood Count 3.94 M/mm3 (4.6-6.2); White Blood Count 3.5 K/mm3 (4.4-11.0)
[2021-09-06 10:31] LABS: AST(SGOT) 21 U/L (15-37); Alanine Aminotransfer ALT/SGPT 29 U/L (16-61); Albumin, Serum 3.5 g/dL (3.2-5.0); Alkaline Phosphatase 70 U/L (45-117); Anion Gap 2 (5-15); BUN 19 mg/dL (7-18); BUN/Creat Ratio 17.8 RATIO (10-20); Calcium,Total 8.6 mg/dL (8.5-10.1); Chloride 109 mmol/L (98-107); Cholesterol 133 mg/dL (200); Creatinine, Serum 1.07 mg/dL (0.70-1.30); EST Glomerular Filtration Rate 73 mL/min (>60); Est Glom Filt Rate - Afr Amer 88 mL/min (>60); Ferritin 19 ng/mL (26-388); Globulin 3.5 g/dL (2.2-4.2); Glucose 104 mg/dL (74-106); High Density Lipoprotein 48 mg/dL; Iron 46 ug/dL (65-175); Iron Binding Capacity,Total 360 ug/dL (250-450); Sodium Level 140 mmol/L (136-145); Triglycerides 72 mg/dL; Very Low Density Lipoprotein 14 mg/dL (5-40)
== END | disposition home or self-care (01) ==
LOC: MFPLAB 08:49
PROVIDERS: PCP Family Medicine; Referring Provider Family Medicine; Visit Provider Family Medicine
DX: E61.1 Iron deficiency (principal); E78.5 Hyperlipidemia, unspecified
CPT/HCPCS: 36415; 80053; 80061; 82728; 83540; 83550; 85025

== ENCOUNTER → 2022-01-29 | Outpatient (CLI) | payer MEDICARE, OTHER, SELFPAY ==
[2022-01-29 09:55] LABS: Absolute Lymphocyte Count 0.88 X10^3/uL (0.83-4.51); Absolute Neutrophil Count 2.2 X10^3/uL (2.0-7.7); Basophil# 0.02 X10^3/uL; Basophil% 0.5 % (0-1); Eosinophil# 0.17 X10^3/uL; Eosinophils% 4.5 % (0-5); Hematocrit 41.9 % (40-54); Hemoglobin 13.8 g/dL (13.0-16.5); Lymphocyte # 0.88 X10^3/ul (0.83-4.51); Lymphocyte % 23.4 % (19-41); Mean Corp Hgb Conc 32.9 g/dL (32-36); Mean Corpuscular Hgb 32.9 pg (27.0-32.0); Mean Platelet Vol. 8.8 fl (6.2-12.0); Monocyte# 0.44 X10^3/uL; Monocyte% 11.7 % (0-10); NRBC Flagged by Analyzer 0 % (0-5); Neutrophil # 2.24 X10^3/uL (2.7-7.7); Neutrophil % 59.6 % (47-70); Platelet Count 240 K/mm3 (150-450); RBC Distribution Width CV 12.2 % (11.6-14.6); Red Blood Count 4.19 M/mm3 (4.6-6.2); White Blood Count 3.8 K/mm3 (4.4-11.0)
[2022-01-29 10:23] LABS: Ferritin 37 ng/mL (26-388); Iron 54 ug/dL (65-175); Iron Binding Capacity,Total 346 ug/dL (250-450)
== END | disposition home or self-care (01) ==
LOC: MFPLAB 09:10
PROVIDERS: PCP Family Medicine; Referring Provider Family Medicine; Visit Provider Family Medicine
DX: E61.1 Iron deficiency (principal)
CPT/HCPCS: 36415; 82728; 83540; 83550; 85025

== ENCOUNTER → 2022-03-14 | Outpatient (CLI) | payer MEDICARE, OTHER, SELFPAY ==
--- NOTE | 2022-03-14 16:33 | RAD_ITS ---
STUDY: X-RAY - LEFT FOOT CLINICAL: Male, 71 years old. The distal lateral nonplantar aspect of the foot. TECHNIQUE: 3 view(s) of the foot. COMPARISON: None. FINDINGS: Normal talus, calcaneus, and tarsal bones. Mild arthrosis of the visualized subtalar, talonavicular, calcaneocuboid, tarsal and tarsometatarsal articulations. Normal metatarsi. There is mild degenerative arthrosis of the metatarsophalangeal joint of the hallux . Normal tibial and fibular sesamoid bones. Normal interphalangeal joint of the great toe. Normal phalanges of the great toe. Normal second through fifth metatarsophalangeal joints. Normal interphalangeal joints and phalanges of the lesser toes. The soft tissue structures are unremarkable. RAD/Foot min 3 Views IMPRESSION: Degenerative changes, as above. There is no acute abnormality. Electronically Signed: Lui Townsend DO at 19:09 EST ,
== END | disposition home or self-care (01) ==
LOC: MTRAD 16:33
PROVIDERS: PCP Family Medicine; Referring Provider Family Medicine; Visit Provider Family Medicine
DX: M25.475 Effusion, left foot (principal)
CPT/HCPCS: 73630

== ENCOUNTER → 2022-04-08 | Outpatient (CLI) | payer MEDICARE, OTHER, SELFPAY ==
[2022-04-08 12:25] LABS: Absolute Lymphocyte Count 0.99 X10^3/uL (0.83-4.51); Absolute Neutrophil Count 2.4 X10^3/uL (2.0-7.7); Basophil# 0.02 X10^3/uL; Basophil% 0.5 % (0-1); Eosinophil# 0.16 X10^3/uL; Hematocrit 43.2 % (40-54); Hemoglobin 14.1 g/dL (13.0-16.5); Lymphocyte # 0.99 X10^3/ul (0.83-4.51); Lymphocyte % 24.5 % (19-41); Mean Corp Hgb Conc 32.6 g/dL (32-36); Mean Corpuscular Hgb 33.1 pg (27.0-32.0); Mean Corpuscular Volume 101.4 fL (80-94); Mean Platelet Vol. 8.9 fl (6.2-12.0); Monocyte# 0.45 X10^3/uL; Monocyte% 11.1 % (0-10); NRBC Flagged by Analyzer 0 % (0-5); Neutrophil % 59.4 % (47-70); Platelet Count 241 K/mm3 (150-450); RBC Distribution Width CV 12.7 % (11.6-14.6); RBC Distribution Width SD 47.6 fl (35.1-43.9); Red Blood Count 4.26 M/mm3 (4.6-6.2)
[2022-04-08 13:07] LABS: AST(SGOT) 28 U/L (15-37); Alanine Aminotransfer ALT/SGPT 40 U/L (16-61); Albumin, Serum 3.6 g/dL (3.2-5.0); Alkaline Phosphatase 77 U/L (45-117); Anion Gap 6 (5-15); BUN 17 mg/dL (7-18); BUN/Creat Ratio 18.5 RATIO (10-20); Calcium,Total 8.9 mg/dL (8.5-10.1); Chloride 105 mmol/L (98-107); Cholesterol 177 mg/dL (200); Creatinine, Serum 0.92 mg/dL (0.70-1.30); EST Glomerular Filtration Rate 86 mL/min (>60); Est Glom Filt Rate - Afr Amer 104 mL/min (>60); Ferritin 49 ng/mL (26-388); Globulin 3.5 g/dL (2.2-4.2); Glucose 91 mg/dL (74-106); High Density Lipoprotein 51 mg/dL; Iron 123 ug/dL (65-175); Iron Binding Capacity,Total 333 ug/dL (250-450); Protein, Total 7.1 g/dL (6.4-8.2); Sodium Level 139 mmol/L (136-145); Triglycerides 122 mg/dL; Very Low Density Lipoprotein 24 mg/dL (5-40)
== END | disposition home or self-care (01) ==
LOC: MFPLAB 11:13
PROVIDERS: PCP Family Medicine; Referring Provider Family Medicine; Visit Provider Family Medicine
DX: E61.1 Iron deficiency (principal); E78.5 Hyperlipidemia, unspecified; Z12.5 Encounter for screening for malignant neoplasm of prostate
CPT/HCPCS: 36415; 80053; 80061; 82728; 83540; 83550; 84153; 85025; G0103

== ENCOUNTER → 2022-05-08 | Outpatient (CLI) | payer MEDICARE, OTHER, SELFPAY ==
--- NOTE | 2022-05-08 09:30 | RAD_ITS ---
STUDY: X-RAY - ESOPHAGUS (BARIUM SWALLOW) WITH FLUOROSCOPY REASON FOR EXAM: Male, 71 years old. DYSPHAGIA for solid foods. TECHNIQUE: 16 view(s) of the esophagus were obtained following swallowing of barium. FLUOROSCOPY TIME (if supplied): (24 seconds) minutes/seconds. 6.52 mGy COMPARISON: None. FINDINGS: There is no demonstrated esophageal foreign body. There is no demonstrated stricture or mucosal abnormality. Normal gastroesophageal junction, without a demonstrated hiatal hernia. The patient ingested a 12 mm tablet of barium without any difficulty. Normal visualized aortic arch and descending thoracic aorta. Normal visualized pulmonary parenchyma. There are diffuse degenerative changes of the visualized thoracic spine. RAD/Esophagus Dual Contrast IMPRESSION: Normal plain film x-ray examination (barium swallow) of the esophagus. Electronically Signed: Jamar Roland MD at 8:54 EDT ,
== END | disposition home or self-care (01) ==
LOC: RAD 09:21
PROVIDERS: PCP Family Medicine; Referring Provider Family Medicine; Visit Provider Family Medicine
DX: R13.10 Dysphagia, unspecified (principal)
CPT/HCPCS: 74221

== ENCOUNTER → 2023-02-12 | Outpatient (CLI) | payer MEDICARE, OTHER, SELFPAY ==
--- OUTSIDE RECORDS SUMMARY | 2023-02-12 15:40 | XMS RPT_ITS | CCD ---
Author Name Unknown Address [address] [place] [address] Organization [facility] Care Team Providers Care Deli Cutter Slicer Name Role Phone SELF, SELF Referring Unavailable KEMI ELISE Primary Care Unavailable Encounters Encounter Date Encounter Type Care Provider Facility Start: 11-15-2019 Patient encounter procedure SELF BRITTANY F Facility:[facility] Payers Date Payer Category Payer Medicare [id number] 1950 Unknown [id number] Summary Purpose Family History No Family History Records Found Advance Directives No Advanced Directives Records Found Additional Source Comments (unrecognized sect ion and content) No Status Records Found INFORMATION SOURCE (unrecogn ized section and content) FOR RECORDS PERTAINING TO PATIENTS WHO ARE OR HAVE BEEN ENROLLED IN A CHEMICAL DEPENDENCY/SUBSTANCEABUSE PROGRAM, SOME INFORMATION MAY BE OMITTED. This clinical summary was aggregated from multiple sources. Caution should be exercised in using it in the provision of clinical care. This summary normalizes information from multiple sources, and as a consequence, information in this document may materially change the coding, format and clinical context of patient data. In addition, data may be omitted in some cases. CLINICAL DECISIONS SHOULD BE BASED ON THE PRIMARY CLINICAL RECORDS. [facility] [employer] provides no warranty or guarantee of the accuracy or completeness of information in this document.
[2023-02-12 17:25] LABS: Absolute Lymphocyte Count 0.95 X10^3/uL (0.83-4.51); Absolute Neutrophil Count 2.3 X10^3/uL (2.0-7.7); Basophil# 0.02 X10^3/uL; Basophil% 0.5 % (0-1); Eosinophil# 0.17 X10^3/uL; Eosinophils% 4.5 % (0-5); Hematocrit 38.6 % (40-54); Hemoglobin 12.7 g/dL (13.0-16.5); Lymphocyte # 0.95 X10^3/ul (0.83-4.51); Lymphocyte % 25.3 % (19-41); Mean Corp Hgb Conc 32.9 g/dL (32-36); Mean Corpuscular Hgb 33.1 pg (27.0-32.0); Mean Corpuscular Volume 100.5 fL (80-94); Monocyte# 0.33 X10^3/uL; Monocyte% 8.8 % (0-10); NRBC Flagged by Analyzer 0 % (0-5); Neutrophil # 2.28 X10^3/uL (2.7-7.7); Neutrophil % 60.9 % (47-70); Platelet Count 254 K/mm3 (150-450); RBC Distribution Width CV 12.5 % (11.6-14.6); RBC Distribution Width SD 45.6 fl (35.1-43.9); Red Blood Count 3.84 M/mm3 (4.6-6.2); White Blood Count 3.8 K/mm3 (4.4-11.0)
[2023-02-12 17:57] LABS: ALB/GLOB Ratio 1.1 RATIO (0.9-2.4); AST(SGOT) 22 U/L (15-37); Alanine Aminotransfer ALT/SGPT 32 U/L (16-61); Albumin, Serum 3.6 g/dL (3.2-5.0); Alkaline Phosphatase 68 U/L (45-117); Anion Gap 7 (5-15); BUN 22 mg/dL (7-18); Calcium,Total 8.3 mg/dL (8.5-10.1); Chloride 108 mmol/L (98-107); Cholesterol 134 mg/dL (200); Creatinine, Serum 0.92 mg/dL (0.70-1.30); EST Glomerular Filtration Rate 87 mL/min (>60); Est Glom Filt Rate - Afr Amer 105 mL/min (>60); Ferritin 23 ng/mL (26-388); Globulin 3.3 g/dL (2.2-4.2); Glucose 116 mg/dL (74-106); High Density Lipoprotein 54 mg/dL; Iron 167 ug/dL (65-175); Iron Binding Capacity,Total 313 ug/dL (250-450); Potassium 4.1 mmol/L (3.5-5.1); Protein, Total 6.9 g/dL (6.4-8.2); Sodium Level 141 mmol/L (136-145); Triglycerides 150 mg/dL; Very Low Density Lipoprotein 30 mg/dL (5-40)
== END | disposition home or self-care (01) ==
LOC: MFPLAB 15:24
PROVIDERS: PCP Family Medicine; Visit Provider Family Medicine
DX: E61.1 Iron deficiency (principal); E78.5 Hyperlipidemia, unspecified; N40.1 Benign prostatic hyperplasia with lower urinary tract symptoms
CPT/HCPCS: 36415; 80053; 80061; 82728; 83540; 83550; 85025

== ENCOUNTER → 2023-03-13 | Outpatient (CLI) | payer MEDICARE, OTHER, SELFPAY ==
--- OUTSIDE RECORDS SUMMARY | 2023-03-13 08:22 | XMS RPT_ITS | CCD ---
Author Name Unknown Address [address] [place] [address] Organization [facility] Care Team Providers Care Digital Watch Assembler Name Role Phone SELF, SELF Referring Unavailable KEMI ELISE Primary Care Unavailable Encounters Encounter Date Encounter Type Care Provider Facility Start: 11-15-2019 Patient encounter procedure SELF BRITTANY F Facility:[facility] Payers Date Payer Category Payer Medicare [id number] 1950 Unknown [id number] Summary Purpose Family History No Family History [...] BE BASED ON THE PRIMARY CLINICAL RECORDS. [facility] [employer] provides no warranty or guarantee of the accuracy or completeness of information in this document.
[2023-03-13 10:05] LABS: Absolute Lymphocyte Count 0.91 X10^3/uL (0.83-4.51); Absolute Neutrophil Count 1.9 X10^3/uL (2.0-7.7); Basophil# 0.02 X10^3/uL; Basophil% 0.6 % (0-1); Eosinophil# 0.16 X10^3/uL; Eosinophils% 4.7 % (0-5); Hematocrit 40.4 % (40-54); Hemoglobin 13.3 g/dL (13.0-16.5); Lymphocyte # 0.91 X10^3/ul (0.83-4.51); Lymphocyte % 26.9 % (19-41); Mean Corp Hgb Conc 32.9 g/dL (32-36); Mean Corpuscular Hgb 32.7 pg (27.0-32.0); Mean Corpuscular Volume 99.3 fL (80-94); Mean Platelet Vol. 8.5 fl (6.2-12.0); Monocyte# 0.38 X10^3/uL; Monocyte% 11.2 % (0-10); NRBC Flagged by Analyzer 0 % (0-5); Neutrophil # 1.91 X10^3/uL (2.7-7.7); Neutrophil % 56.6 % (47-70); Platelet Count 225 K/mm3 (150-450); RBC Distribution Width CV 12.8 % (11.6-14.6); RBC Distribution Width SD 46.8 fl (35.1-43.9); Red Blood Count 4.07 M/mm3 (4.6-6.2); White Blood Count 3.4 K/mm3 (4.4-11.0)
[2023-03-13 10:32] LABS: Hemoglobin A1c 5.5 % (3.8-5.6)
[2023-03-13 10:33] LABS: ALB/GLOB Ratio 1.1 RATIO (0.9-2.4); AST(SGOT) 22 U/L (15-37); Alanine Aminotransfer ALT/SGPT 34 U/L (16-61); Albumin, Serum 3.6 g/dL (3.2-5.0); Alkaline Phosphatase 69 U/L (45-117); Anion Gap 4 (5-15); BUN 20 mg/dL (7-18); BUN/Creat Ratio 20.9 RATIO (10-20); Calcium,Total 8.8 mg/dL (8.5-10.1); Chloride 109 mmol/L (98-107); Cholesterol 127 mg/dL (200); Creatinine, Serum 0.96 mg/dL (0.70-1.30); EST Glomerular Filtration Rate 82 mL/min (>60); Est Glom Filt Rate - Afr Amer 99 mL/min (>60); Ferritin 30 ng/mL (26-388); Globulin 3.4 g/dL (2.2-4.2); Glucose 94 mg/dL (74-106); High Density Lipoprotein 51 mg/dL; Iron 112 ug/dL (65-175); Iron Binding Capacity,Total 393 ug/dL (250-450); Potassium 4.3 mmol/L (3.5-5.1); Sodium Level 139 mmol/L (136-145); Triglycerides 46 mg/dL; Very Low Density Lipoprotein 9 mg/dL (5-40)
== END | disposition home or self-care (01) ==
LOC: MFPLAB 08:18
PROVIDERS: PCP Family Medicine; Visit Provider Family Medicine
DX: E78.5 Hyperlipidemia, unspecified (principal); E61.1 Iron deficiency; R73.09 Other abnormal glucose
CPT/HCPCS: 36415; 80053; 80061; 82728; 83036; 83540; 83550; 85025

== ENCOUNTER → 2023-08-13 | Outpatient (CLI) | payer MEDICARE, OTHER, SELFPAY ==
[2023-08-13 10:08] LABS: Absolute Lymphocyte Count 0.86 X10^3/uL (0.83-4.51); Absolute Neutrophil Count 2.4 X10^3/uL (2.0-7.7); Basophil# 0.03 X10^3/uL; Basophil% 0.8 % (0-1); Eosinophil# 0.19 X10^3/uL; Eosinophils% 4.9 % (0-5); Hematocrit 39.8 % (40-54); Hemoglobin 12.9 g/dL (13.0-16.5); Lymphocyte # 0.86 X10^3/ul (0.83-4.51); Lymphocyte % 22.2 % (19-41); Mean Corp Hgb Conc 32.4 g/dL (32-36); Mean Corpuscular Volume 98.8 fL (80-94); Mean Platelet Vol. 8.8 fl (6.2-12.0); Monocyte# 0.41 X10^3/uL; Monocyte% 10.6 % (0-10); NRBC Flagged by Analyzer 0 % (0-5); Neutrophil # 2.37 X10^3/uL (2.7-7.7); Neutrophil % 61.2 % (47-70); Platelet Count 266 K/mm3 (150-450); RBC Distribution Width CV 12.8 % (11.6-14.6); Red Blood Count 4.03 M/mm3 (4.6-6.2); White Blood Count 3.9 K/mm3 (4.4-11.0)
[2023-08-13 10:29] LABS: ALB/GLOB Ratio 0.9 RATIO (0.9-2.4); AST(SGOT) 18 U/L (15-37); Alanine Aminotransfer ALT/SGPT 26 U/L (16-61); Albumin, Serum 3.5 g/dL (3.2-5.0); Alkaline Phosphatase 85 U/L (45-117); Anion Gap 5 (5-15); BUN 14 mg/dL (7-18); BUN/Creat Ratio 15.1 RATIO (10-20); Calcium,Total 8.6 mg/dL (8.5-10.1); Chloride 104 mmol/L (98-107); Cholesterol 130 mg/dL (200); Creatinine, Serum 0.93 mg/dL (0.70-1.30); EST Glomerular Filtration Rate 85 mL/min (>60); Est Glom Filt Rate - Afr Amer 103 mL/min (>60); Ferritin 34 ng/mL (26-388); Globulin 3.7 g/dL (2.2-4.2); Glucose 86 mg/dL (74-106); High Density Lipoprotein 47 mg/dL; Iron 90 ug/dL (65-175); Iron Binding Capacity,Total 314 ug/dL (250-450); PSA,Total - Annual Screen 2.02 ng/mL (0.00-4.00); Potassium 4.1 mmol/L (3.5-5.1); Protein, Total 7.2 g/dL (6.4-8.2); Sodium Level 137 mmol/L (136-145); Triglycerides 58 mg/dL; Very Low Density Lipoprotein 12 mg/dL (5-40)
== END | disposition home or self-care (01) ==
LOC: MFPLAB 08:36
PROVIDERS: PCP Family Medicine; Visit Provider Family Medicine
DX: Z12.5 Encounter for screening for malignant neoplasm of prostate (principal); E61.1 Iron deficiency; E78.5 Hyperlipidemia, unspecified
CPT/HCPCS: 36415; 80053; 80061; 82728; 83540; 83550; 84153; 85025; G0103

== ENCOUNTER → 2024-03-01 | Outpatient (CLI) | payer MEDICARE, OTHER, SELFPAY ==
--- NOTE | 2024-03-01 14:31 | SP.MBSS_ITS ---
Modified Barium Swallow Patient Information Study Date: 03/01/24 Study Time: 13:00 Direct Billable Minutes: 105 Total Minutes procedure & reportin Diagnosis: Dysphagia R13.10 Referring Physician: Darlene Charles Reason for Referral: Objectively assess swallow function, assess risk for aspiration, and determine recommendations for least restrictive diet textures and compensatory strategies to improve safety of swallow. Medical History: PMH: RBBB, Atherosclerosis of coronary artery of [place] heart without angina pectoris, Incomplete right bundle branch block (RBBB), COPD, HLD. The patient was recently seen in office visit w/ Darlene Charles CNP w/ [facility] due to episodes of dysphagia. Most recent episode was on rice. He felt it was stuck in his throat and spit up mucous w/ a little rice for ~10 minutes. He has hx of esophagram in 2022 that was unremarkable. He was referred for MBSS and EGD. 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 When foods get caught, he feels discomfort in the base of his throat, at the level of his sternum, and even some mild discomfort below his sternum. Drinks do not help to clear the sensation of retention, just time and continuing to swallow help clear the retention. He reports his mother and father both experienced similar dysphagia, but they did not have any sort of formal work up to address their issues. Dry textures give him the most difficulty. Current Diet Ordered: Regular textures / Thin liquids Dentition: Natural Teeth Mental Status: WNL Respiratory Status: Oxygenating on Room Air Penetration-Aspiration Scale Penetration-Aspiration Scale: OBJECTIVE ASSESSMENT OF SWALLOW FUNCTION (QUANTITATIVE ? PER TRIAL): PENETRATION / ASPIRATION SCALE (BARDALES): 1 = does not enter airway 2 = enters airway/above vocal folds/ejected 3 = enters airway/above vocal folds/not ejected 4 = enters airway/contacts vocal folds/ejected 5 = enters airway/contacts vocal folds/not ejected 6 = enters airway/below vocal folds/ejected 7 = enters airway/below vocal folds/not ejected despite effort 8 = enters airway/below vocal folds/no effort VIDEOFLOROSCOPIC SCALE SCORE (BARDALES): Grade I = aspiration of material that has penetrated into the laryngeal vestibule, intact cough reflex Grade II = aspiration < 10 % of the bolus, intact cough reflex Grade III = aspiration of < 10 % of the bolus, reduced cough reflex or aspiration of > 10 % of the bolus, intact cough reflex Grade IV = aspiration of > 10 % of the bolus, reduced cough reflex Penetration-Aspiration Scale Score Thin Liquid via teaspoon: Result: 1= does not enter airway Thin Liquid via teaspoon Trial 2: Result: 1= does not enter airway Thin Liquid via sequential sips: cup: Result: 1= does not enter airway [place] Thick Liquid via sequential sips: cup: Result: 1= does not enter airway Pudding via teaspoon: Result: 1= does not enter airway Comment: Esophageal screen - Mild retention in middle esophagus. Whole Cookie: Result: 1= does not enter airway Comment: Esophageal screen - Retention throughout the esophagus. Thin Liquid via sequential sips:straw: Result: 1= does not enter airway Comment: Esophageal screen - Liquid wash cleared majority of cookie retention; however, pt continued w/ retention of barium in lower esophagus w/ retrograde flow to the middle esophagus. Oral Phase Labial Seal: No Labial Escape Tongue Control During Bolus Hold: Posterior escape of less than half of bolus (sequential thin) Bolus Preparation/Mastication: Timely and efficient chewing and mashing Bolus Transport/Lingual Motion: Brisk tongue motion Oral Residue: Residue collection on oral structures (piecemeal deglutition of pudding and cookie - MECHANICAL MAINTENANCE FOREMAN provided large bites) Pharyngeal Phase Initiation of Pharyngeal Swallow: Bolus head at posterior laryngeal surgace of epiglottis (sequential thin) Soft Palate Elevation: Trace column of contrast/air between soft palate and pharyngeal wall Laryngeal Elevation: Comp. Superior move thyroid cart w/comp. apprx arytenoid cart-epig pet Anterior Hyoid Excursion: Partial anterior movement Epiglottic Movement: Partial inversion (Partial 1X on second swallow of thin by tsp trial 1; otherwise, complete epiglottic inversion) Laryngeal Vestibule Closure at Height of Swallow: Complete; no air/contrast in laryngeal vestibule Pharyngeal Stripping Wave: Present - diminished Pharyngoesophageal Segment Opening: Parital distension and partial duration; parital obstruction of flow Tongue Base Retraction: Wide column of contrast between tongue base & post. pharyngeal wall Pharyngeal Residue: Collection of residue within or on pharyngeal structures Esophageal Phase Esophageal Clearance: Esophageal retention w/ retrograde flow below pharyngoesophageal seg. Treatment Strategies Effects of treatment strategies attemped:: Multiple swallows = somewhat effective in clearing pharyngeal residues Liquid wash = mostly effective in clearing pharyngeal and esophageal residues Diagnosis/Impression Diagnosis: Moderate pharyngoesophageal dysphagia R13.14 Impression: The oral phase appears grossly WNL. Mild posterior loss on the second swallow w/ sequential sips. Timely and complete mastication. The pharyngeal phase is primarily marked by... -Moderate pharyngeal residue of cookie due to decreased TB retraction, pharyngeal stripping wave, and UES opening/duration, which mostly cleared w/ use of liquid wash. Of note, the pt did not sense moderate pharyngeal retention prior to liquid wash. -Good airway closure during the swallow w/ no aspiration or laryngeal penetration observe; however, moderate pharyngeal residue may increase risk for post prandial aspiration or choking. The esophageal phase is primarily marked by... -Mild retention of pudding in middle esophagus. -Retention of cookie throughout esophagus, which mostly cleared w/ liquid wash; however, continued retention of barium in lower esophagus w/ retrograde flow to mid esophagus. Recommendations Diet: Regular Textures (Moisten dry textures) and Thin Liquids Comment: STOP meal if increased s/s of reflux, sensation of retention, or regurgitation despite use of strategies listed below and resume meal at a later time. Compensatory Strategies: Small Bites (Chew thoroughly), Small Sips, Slow Rate, Multiple Swallows (pt independently utilized multiple swallows during MBSS), Alternate bites/solids and sips/liquids (Take a sip after every 1-2 bites) and Sitting upright (During and 60min after a meal) Recommend Repeat Modified Barium Swallow: TBD (If tolerating regular textures w/ use of strategies, no need for repeat MBSS. If worsening concerns for aspiration or worsening swallowing difficulty, recommend repeat MBSS.) Need for Skilled Speech Therapy Services: Yes Comment: Recommend OP speech therapy consult to address pharyngeal dysphagia. POC to include training in strategies to improve pharyngeal and esophageal clearance to reduce risk for post prandial and reflux aspiration. Will also recommend implementation of oropharyngeal exercise program to improve TB retraction, pharyngeal stripping wave, and UES opening/duration (Loren, Effortful, Shaker, Yawn stretch). Frequency of intervention to be determined by treating OP therapist. Recommended Referrals: GI Consult (Continue to follow w/ GI for management of esophageal dysphagia.) Education Completed: 1. Described result of evaluation., 2. Pt understands evaluation & agrees with goals and treatment plan. and 7. Pt requires further education on strategies & risks. Status Active ST Patient: Active Contact Information [facility] Speech Therapy:: Staci Devine M.A. CCC-MECHANICAL MAINTENANCE FOREMAN? Speech-Language Pathologist?? [facility] [address] [place] [address]? [email or web address]?? [phone]
== END | disposition home or self-care (01) ==
PROVIDERS: PCP Family Medicine; Referring Provider Nurse Practitioner Acute Care; Visit Provider Nurse Practitioner Acute Care
DX: R13.10 Dysphagia, unspecified (principal)
CPT/HCPCS: 74230; 92611

== ENCOUNTER → 2024-03-04 | Outpatient (CLI) | payer MEDICARE, OTHER, SELFPAY ==
[2024-03-04 12:07] LABS: Absolute Lymphocyte Count 0.95 X10^3/uL (0.83-4.51); Absolute Neutrophil Count 2.1 X10^3/uL (2.0-7.7); Basophil# 0.02 X10^3/uL; Basophil% 0.6 % (0-1); Eosinophils% 2.8 % (0-5); Hematocrit 41.9 % (40-54); Hemoglobin 13.8 g/dL (13.0-16.5); Lymphocyte # 0.95 X10^3/ul (0.83-4.51); Lymphocyte % 26.4 % (19-41); Mean Corp Hgb Conc 32.9 g/dL (32-36); Mean Corpuscular Hgb 33.6 pg (27.0-32.0); Mean Corpuscular Volume 101.9 fL (80-94); Mean Platelet Vol. 9.1 fl (6.2-12.0); Monocyte# 0.38 X10^3/uL; Monocyte% 10.6 % (0-10); NRBC Flagged by Analyzer 0 % (0-5); Neutrophil # 2.14 X10^3/uL (2.7-7.7); Neutrophil % 59.3 % (47-70); Platelet Count 224 K/mm3 (150-450); RBC Distribution Width CV 12.8 % (11.6-14.6); RBC Distribution Width SD 48.4 fl (35.1-43.9); Red Blood Count 4.11 M/mm3 (4.6-6.2); White Blood Count 3.6 K/mm3 (4.4-11.0)
[2024-03-04 12:39] LABS: ALB/GLOB Ratio 1.1 RATIO (0.9-2.4); AST(SGOT) 20 U/L (15-37); Alanine Aminotransfer ALT/SGPT 26 U/L (16-61); Albumin, Serum 3.7 g/dL (3.2-5.0); Alkaline Phosphatase 79 U/L (45-117); Anion Gap 4 (5-15); BUN 19 mg/dL (7-18); Calcium,Total 9.2 mg/dL (8.5-10.1); Chloride 106 mmol/L (98-107); Cholesterol 129 mg/dL (200); EST Glomerular Filtration Rate 88 mL/min (>60); Est Glom Filt Rate - Afr Amer 106 mL/min (>60); Ferritin 32 ng/mL (26-388); Globulin 3.5 g/dL (2.2-4.2); Glucose 88 mg/dL (74-106); High Density Lipoprotein 56 mg/dL; Iron 171 ug/dL (65-175); Iron Binding Capacity,Total 369 ug/dL (250-450); Potassium 4.3 mmol/L (3.5-5.1); Protein, Total 7.2 g/dL (6.4-8.2); Sodium Level 138 mmol/L (136-145); Triglycerides 61 mg/dL; Very Low Density Lipoprotein 12 mg/dL (5-40)
== END | disposition home or self-care (01) ==
LOC: MFPLAB 09:43
PROVIDERS: PCP Family Medicine; Referring Provider Family Medicine; Visit Provider Family Medicine
DX: E61.1 Iron deficiency (principal); E78.5 Hyperlipidemia, unspecified
CPT/HCPCS: 36415; 80053; 80061; 82728; 83540; 83550; 85025

== ENCOUNTER 2024-03-23 09:26 | Day surgery (SDC) | payer MEDICARE, OTHER, SELFPAY ==
--- NOTE | 2024-03-21 17:15 | PAT.ANE_ITS ---
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 When Was Last Pacemaker Check QUESTION #4 FULL TEXT: You/Your Family Experience fever (hyperthermia) with Anesthesia Last Oral Intake Last Oral intake: Last Oral Intake NPO since Meds taken in AM with sips of water? Meds patient instructed to take am of surgery PONV PONV - academic vice president: PONV - academic vice president Female No 03/21/24 16:54 HX of Motion Sickness No 03/21/24 16:54 HX of N/V After Surgery No 03/21/24 16:54 Non-Smoker Yes 03/21/24 16:54 Duration of Surgery greater No 03/21/24 16:54 than 60 minutes Number of Risk Factors 1 03/21/24 16:54 PONV Score Low Risk 03/21/24 16:54 Height & Weight Height & Weight: Anesthesia: Height & Weight Height 5 ft 8 in 01/21/24 13:31 Respiratory Assessment Respiratory Assessment - academic vice president: Respiratory Tract Infection Hx - academic vice president Hx Respiratory Tract Infection No 03/21/24 16:54 STOP Sleep Apnea STOP Sleep Apnea - academic vice president: STOP Sleep Apnea - academic vice president Hx Hypertension No 03/21/24 16:54 Hx Sleep Apnea No 03/21/24 16:54 CPAP BIPAP Do you snore loudly (louder No 03/21/24 16:54 than talking or can be heard Do you often feel tired/ No 03/21/24 16:54 fatigued/ sleepy during daytime? Has anyone observed you stop Yes 03/21/24 16:54 breathing during sleep? STOP Results Negative 03/21/24 16:54 QUESTION #5 FULL TEXT : Do you snore loudly (louder than talking or can be heard through closed doors)? Tobacco Use History Tobacco Use History - academic vice president: Tobacco Use History - academic vice president Tobacco Use Smoking Status Never smoker 03/21/24 16:54 Hx Tobacco Use No 03/21/24 16:54 Years Smoking Packs Smoked per Day Smoking Cessation Date was within the last 15 years Hx Smoking Cessation Date Hx Smoking Cessation Counseling Hematologic Medial History Hematologic Hx - academic vice president: Hematologic Medical Hx - facility security officer Hx of Blood Transfusion No 03/21/24 16:54 Hx of Transfusion in last 3 No 03/21/24 16:54 Months Date of Last Transfusion (if within last 3 months) Ever experience any problems No 03/21/24 16:54 with transfusion(s)? Specify any problems Hx of Preganancy in last 3 N/A 03/21/24 16:54 Months Nurse Filling Out Transfusion [facility] 03/21/24 16:54 & Questions: Date: 03/21/24 03/21/24 16:54 Time: 16:55 03/21/24 16:54 Patient unable to answer at this time (ie. confused, unrespo /Reproduction History /Reproductive History - academic vice president: /Reproductive Hx- academic vice president Hx Now Gestational Age (in weeks): EDC: Hx Hx Para [facility] History (Updated 03/21/24 @ 17:02 by Carlee Quigley) Wears contact lenses Wears glasses Non-smoker History of stress test Cardiology follow-up encounter Right bundle branch block (RBBB) Atherosclerosis of coronary artery of [place] heart without angina pectoris Incomplete right bundle branch block (RBBB) COPD (chronic obstructive pulmonary disease) Hyperlipidemia Home Medications ?Medication ?Instructions ?Recorded ?Last Taken ?Type aspirin 81 mg tablet,delayed 81 mg PO QDAY 03/07/17 History release (Adult Low Dose Aspirin) ydingxky-vbplosgw-mggon acid 400 1 tab PO .QD 03/07/17 Unknown History mcg-vit K 20 mcg-lycop 300 mcg tablet (One-A-Day Men's Multivitamin) omega-3 fatty acids 500 mg capsule 1,000 mg PO QDAY Unknown History cholecalciferol (vitamin D3) 50 2,000 unit PO DAILY Unknown History mcg (2,000 unit) capsule isosorbide mononitrate 30 mg 30 mg PO DAILY #90 tabs 0 03/23/23 Unknown Rx tablet,extended release 24 hr ferrous sulfate 324 mg (65 mg 324 mg PO 3XW 01/21/24 U nknown History iron) tablet,delayed release erkdazepgiu-bhmmyatvv-pdxn144-hyal 1 tab PO BID Unknown History 750 mg-100 mg-125 mg-1.65 mg tablet (Glucosamine Chondroit Complx Advan) niacinamide 500 mg tablet 500 mg PO QDAY 01/21/24 Unkn own History tamsulosin 0.4 mg capsule 0.8 mg PO DAILY 01/21/24 Unk nown History turmeric root extract 500 mg 500 mg PO BID 01/21/24 Un known History capsule simvastatin 40 mg tablet 40 mg PO QHS #90 tabs Unknown Rx Allergy/AdvReac Type Severity Reaction Status Date / Time No Known Allergies Allergy Verified 03/21/24 16:50 Family History Father CAD (coronary artery disease) 51 y/o had KS and CABG Surgical History H/O wrist surgery History of left heart catheterization (05/12/18) History of appendectomy H/O right knee surgery Social History Smoking Status: Never smoker alcohol intake: never substance use type: does not use caffeine: Yes Type: carbonated beverages Audit: Pertinent Findings Pertinent Findings EKG Perinent findings: 12/29/2023 sinus rhythm right bundle branch block left axis bifascicular block Echo (EF%) pertinent findings: 03/31/2017 normal size function EF 65% Consult pertinent findings: Cardiology 12/29/2023 coronary artery disease distal circumflex and small vessel stable no symptoms of angina continue aspirin isosorbide Recommendation Anesthesia Recommendation Anesthesia recommendation: OPTIMIZED for anesthesia
[2024-03-23] VITALS (8 sets, daily range): BP systolic 97–101; BP diastolic 57–63; PULSE 47–55; RESP 16; TEMP 36.1–36.6; O2SAT 94–99; BMI 26.4
--- NOTE | 2024-03-23 09:38 | PCM.PRE.AN2 ---
ASA Classification* ASA Classification ASA Classification: 2 Assessment & Plan Anesthesia* Anesthesia Assessment Anesthesia Assessment: Discussed sedation and/or anesthesia options, risks, benefits, and alternatives with patient/parents/legal guardian/POA. Questions invited. The patient/parents/legal guardian/POA seems to understand and agrees to proceed with anesthesia plan. Reviewed the physical assessment, medical history, allergy history and patient home medications list prior to surgery/procedure/anesthetic and documented any changes. Performed airway and anesthesia risk assessments. Anesthesia Type Anesthesia Type: MAC Anesthesia Focused Assessment* Airway Assessment Mouth opens: >3 cm Mallampati Score: II Focused Labs Anesthesia Preop lab: CBC WBC 3.6 K/mm3 (4.4-11.0) L 03/04/24 09:43 03/04/24 RBC 4.11 M/mm3 (4.6-6.2) L 03/04/24 09:43 03/04/24 Hgb 13.8 g/dL (13.0-16.5) 03/04/24 09:43 03/04/24 Hct 41.9 % (40-54) 03/04/24 09:43 03/04/24 Plt Count 224 K/mm3 (150-450) 03/04/24 09:43 03/04/24 CHEMISTRY Potassium 4.3 mmol/L (3.5-5.1) 03/04/24 09:43 03/04/24 Sodium 138 mmol/L (136-145) 03/04/24 09:43 03/04/24 BUN 19 mg/dL (7-18) H 03/04/24 09:43 03/04/24 Creatinine 0.90 mg/dL (0.70-1.30) 03/04/24 09:43 03/04/24 Glucose 88 mg/dL (74-106) 03/04/24 09:43 03/04/24 POC Glucose 104 mg/dL (70-110) 10/01/19 09:49 10/01/19 TSH 1.84 uIU/mL (0.358-3.74) 08/16/20 16:28 08/16/20 COAG PT 13.5 SECONDS (11.7-14.9) 10/01/19 09:40 10/01/19 Pre-Assessment Diagnosis/Proposed Procedure Planned Operative Procedure(s): EGD Anesthesia History Anesthesia History - key account coordinator: Anesthesia History - key account coordinator Hx Hospitalization No 03/21/24 16:54 Any Problems With Anesthesia No 03/21/24 16:54 Cholinesterase deficiency No 03/21/24 16:54 You/Your Family Experience No 03/21/24 16:54 fever (hyperthermia) with Relationship Recent Exposure to Contagious Disease Does patient have nerve No 03/21/24 16:54 stimulator Patient instructed to have device shut off --Does patient have Pacemaker or ICD? When Was Last Pacemaker Check QUESTION #4 FULL TEXT: You/Your Family Experience fever (hyperthermia) with Anesthesia Last Oral Intake Last Oral intake: Last Oral Intake NPO since Meds taken in AM with sips of water? Meds patient instructed to take am of surgery PONV PONV - key account coordinator: PONV - key account coordinator Female No 03/21/24 16:54 HX of Motion Sickness No 03/21/24 16:54 HX of N/V After Surgery No 03/21/24 16:54 Non-Smoker Yes 03/21/24 16:54 Duration of Surgery greater No 03/21/24 16:54 than 60 minutes Number of Risk Factors 1 03/21/24 16:54 PONV Score Low Risk 03/21/24 16:54 Height & Weight Height & Weight: Anesthesia: Height & Weight Height 5 ft 8 in 01/21/24 13:31 Respiratory Assessment Respiratory Assessment - key account coordinator: Respiratory Tract Infection Hx - key account coordinator Hx Respiratory Tract Infection No 03/21/24 16:54 STOP Sleep Apnea STOP Sleep Apnea - key account coordinator: STOP Sleep Apnea - key account coordinator Hx Hypertension No 03/21/24 16:54 Hx Sleep Apnea No 03/21/24 16:54 CPAP BIPAP Do you snore loudly (louder No 03/21/24 16:54 than talking or can be heard Do you often feel tired/ No 03/21/24 16:54 fatigued/ sleepy during daytime? Has anyone observed you stop Yes 03/21/24 16:54 breathing during sleep? STOP Results Negative 03/21/24 16:54 QUESTION #5 FULL TEXT : Do you snore loudly (louder than talking or can be heard through closed doors)? 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 Specify any problems Hx of Preganancy in last 3 N/A 03/21/24 16:54 Months Nurse Filling Out Transfusion MGRIFFITH 03/21/24 16:54 & Questions: Date: 03/21/24 03/21/24 16:54 Time: 16:55 03/21/24 16:54 Patient unable to answer at this time (ie. confused, unrespo /Reproduction History /Reproductive History - key account coordinator: /Reproductive Hx- key account coordinator Hx Now Gestational Age (in weeks): EDC: Hx Hx Para Hx Section SAB PFSH Medical History Wears contact lenses Wears glasses Non-smoker History of stress test Cardiology follow-up encounter Right bundle branch block (RBBB) Atherosclerosis of coronary artery of [place] heart without angina pectoris Incomplete right bundle branch block (RBBB) COPD (chronic obstructive pulmonary disease) Hyperlipidemia Home Medications ?Medication ?Instructions ?Recorded ?Last Taken ?Type aspirin 81 mg tablet,delayed 81 mg PO QDAY 03/07/17 05/12/18 History release (Adult Low Dose Aspirin) rhazkbfb-iwgzzgdv-hmczk acid 400 1 tab PO .QD 03/07/17 Unknown History mcg-vit K 20 mcg-lycop 300 mcg tablet (One-A-Day Men's Multivitamin) omega-3 fatty acids 500 mg capsule 1,000 mg PO QDAY 03/07/17 Unknown History cholecalciferol (vitamin D3) 50 2,000 unit PO DAILY 12/23/18 Unknown History mcg (2,000 unit) capsule isosorbide mononitrate 30 mg 30 mg PO DAILY #90 tabs 03/23/23 Unknown Rx tablet,extended release 24 hr ferrous sulfate 324 mg (65 mg 324 mg PO 3XW 01/21/24 Unknown History iron) tablet,delayed release dibnwwutgqx-qubcoeosm-zbnb958-hyal 1 tab PO BID 01/21/24 Unknown History 750 mg-100 mg-125 mg-1.65 mg tablet (Glucosamine Chondroit Complx Advan) niacinamide 500 mg tablet 500 mg PO QDAY 01/21/24 Unknown History tamsulosin 0.4 mg capsule 0.8 mg PO DAILY 01/21/24 Unknown History turmeric root extract 500 mg 500 mg PO BID 01/21/24 Unknown History capsule simvastatin 40 mg tablet 40 mg PO QHS #90 tabs 03/01/24 Unknown Rx Allergy/AdvReac Type Severity Reaction Status Date / Time No Known Allergies Allergy Verified 03/21/24 16:50 Family History Father CAD (coronary artery disease) 51 y/o had [place] and CABG Surgical History H/O wrist surgery History of left heart catheterization (05/12/18) History of appendectomy H/O right knee surgery Social History Smoking Status: Never smoker alcohol intake: never substance use type: does not use caffeine: Yes Type: carbonated beverages Review of Systems (Anesthesia) ROS Narrative System reviewed and no additional complaints, except as documented.
--- NOTE | 2024-03-23 09:51 | PCM.HP.STD ---
HPI - General General Date of Admission: 03/23/24 Date of Service: 03/23/24 Chief Complaint: dysphagia HPI Narrative FEI GOMEZ, is a 73 M who presentsChief Complaint: dysphagia Details: FEI GOMEZ is a 73 M who presents to the office today for - reports issues with dysphagia upper esophagus - 3 weeks ago - food stuck bad - dining out - spitting up mucus trying to dislodge - this was with rice - episodes are infrequent - usually clears quickly but this episode 3 weeks ago lasted much longer - denies any issues with pills - denies any N/V - denies any HB - denies any EtOH - non-smoker - pop daily - very little use of NSAIDS - denies any weight loss - denies any h/o EGD - dysphagia to dry foods - denies any change in bowel habits - his last colonoscopy was 3 years ago - per patient this was negative - denies any lung disease, RBBB, CAD, HTN - stable, denies any angina, CORBIN or palptations - denies any kidney disease [facility] Medical History Wears contact lenses Wears glasses Non-smoker History of stress test Cardiology follow-up encounter Right bundle branch block (RBBB) Atherosclerosis of coronary artery of [place] heart without angina pectoris Incomplete right bundle branch block (RBBB) COPD (chronic obstructive pulmonary disease) Hyperlipidemia Home Medications ?Medication ?Instructions ?Recorded ?Last Taken ?Type aspirin 81 mg tablet,delayed 81 mg PO QDAY 03/07/17 05/12/18 History release (Adult Low Dose Aspirin) cowbvtdb-btxbbkdf-nqzsp acid 400 1 tab PO .QD 03/07/17 Unknown History mcg-vit K 20 mcg-lycop 300 mcg tablet (One-A-Day Men's Multivitamin) omega-3 fatty acids 500 mg capsule 1,000 mg PO QDAY 03/07/17 Unknown History cholecalciferol (vitamin D3) 50 2,000 unit PO DAILY 12/23/18 Unknown History mcg (2,000 unit) capsule isosorbide mononitrate 30 mg 30 mg PO DAILY #90 tabs 03/23/23 Unknown Rx tablet,extended release 24 hr ferrous sulfate 324 mg (65 mg 324 mg PO 3XW 01/21/24 Unknown History iron) tablet,delayed release vfixlelrzej-xejoynnzq-eebr278-hyal 1 tab PO BID 01/21/24 Unknown History 750 mg-100 mg-125 mg-1.65 mg tablet (Glucosamine Chondroit Complx Advan) niacinamide 500 mg tablet 500 mg PO QDAY 01/21/24 Unknown History tamsulosin 0.4 mg capsule 0.8 mg PO DAILY 01/21/24 Unknown History turmeric root extract 500 mg 500 mg PO BID 01/21/24 Unknown History capsule simvastatin 40 mg tablet 40 mg PO QHS #90 tabs 03/01/24 Unknown Rx Allergy/AdvReac Type Severity Reaction Status Date / Time No Known Allergies Allergy Verified 03/21/24 16:50 Family History Father CAD (coronary artery disease) 51 y/o had [place] and CABG Surgical History H/O wrist surgery History of left heart catheterization (05/12/18) History of appendectomy H/O right knee surgery Social History Smoking Status: Never smoker alcohol intake: never substance use type: does not use caffeine: Yes Type: carbonated beverages ROS Constitutional Constitutional: Denies fatigue, fever(s), poor appetite, weight gain or weight loss Gastrointestinal Gastrointestinal: Denies belching, bloating, change in bowel habits, change in stool character, chewing difficulty, coffee ground emesis, constipation, cramping, diarrhea, dyspepsia, dysphagia, early satiety, excessive flatus, fecal incontinence, heartburn, hematemesis, hematochezia, hemorrhoids, loose stools, melena, nausea, odynophagia, rectal bleeding, tenesmus, vomiting or weight changes Physical Exam Const alert, oriented x3, no apparent distress and healthy appearing General Appearance: cooperative GI normal to inspection, nondistended, normoactive bowel sounds, soft to palpation, non-tender and non-distended Percussion: normal to percussion Rectal Exam: deferred Assessment & Plan Assessment/Plan (1) Dysphagia: QUALIFIERS: Dysphagia type: oropharyngeal phase Qualified Code(s): R13.12 - Dysphagia, oropharyngeal phase (2) Chest pain: PLAN: Plan 1) Dysphagia: Status: Acute Qualifiers: Dysphagia type: oropharyngeal phase Qualified Code(s): R13.12 - Dysphagia, oropharyngeal phase Orders: Orders Swallowing Function w/Video Today R13.10 - Dysphagia, unspecified Plan A 73-year-old male patient presented for a consultation, reporting complaints of oropharyngeal dysphagia for over 2 years. An esophagram performed in April 2022 was unremarkable. The patient reports a family history of similar issues, with his mother experiencing similar problems. He denies any nausea, vomiting, heartburn, or weight loss. The episodes of dysphagia are infrequent, but his most recent episode lasted over 5 minutes with rice. I have scheduled him for a modified barium swallow (MBS) and an esophagogastroduodenoscopy (EGD). Plan Details Follow Up:
--- NOTE | 2024-03-23 10:38 | OP.CCLET_ITS ---
03/23/2024 Yovany Rios [address] [place] [address] Re : Upper GI endoscopy procedure for Larry Stacy Dear Dr. Rios This procedure was performed on Saturday, March 23, 2024. My impressions and recommendations are as follows: Impressions : - LA Grade C reflux esophagitis with no bleeding. Biopsied. - Moderate Schatzki ring. Dilated. - Medium-sized hiatal hernia. - Normal first portion of the duodenum. Recommendations : - Discharge patient to home. - Resume previous diet. - Continue present medications. - Await pathology results. My findings are described in the full procedure note, which is enclosed. If I can be of further assistance, please feel free to contact me at . Sincerely, Julio Hackett, 03/23/2024 10:38:27 AM This report has been signed electronically.
--- NOTE | 2024-03-23 10:38 | OP.EGD_ITS ---
Patient Name: Larry Stacy Procedure Date: 03/23/2024 10:17 AM Date of : 1950 Age: 73 Procedure: Upper GI endoscopy Indications: Dysphagia, Heartburn, Suspected esophageal reflux Providers: Julio Hackett DO Referring MD: Yovany Rios Medicines: Monitored Anesthesia Care Patient Profile: This is a 73 year old male. Refer to note in patient chart for documentation of history and physical. Patient has symptoms of chronic dysphagia, dysphagia with solids and chronic heartburn. Complications: No immediate complications. Procedure: Pre-Anesthesia Assessment: - Prior to the procedure, a History and Physical was performed, and patient medications and allergies were reviewed. The patient is competent. The risks and benefits of the procedure and the sedation options and risks were discussed with the patient. All questions were answered and informed consent was obtained. Patient identification and proposed procedure were verified by the physician in the pre-procedure area. Mental Status Examination: alert and oriented. Airway Examination: normal oropharyngeal airway and neck mobility. Respiratory Examination: clear to auscultation. CV Examination: normal. Prophylactic Antibiotics: The patient does not require prophylactic antibiotics. Prior Anticoagulants: The patient has taken no anticoagulant or antiplatelet agents except for NSAID medication. ASA Grade Assessment: II - A patient with mild systemic disease. After reviewing the risks and benefits, the patient was deemed in satisfactory condition to undergo the procedure. The anesthesia plan was to use monitored anesthesia care (MAC). Immediately prior to administration of medications, the patient was re-assessed for adequacy to receive sedatives. The heart rate, respiratory rate, oxygen saturations, blood pressure, adequacy of pulmonary ventilation, and response to care were monitored throughout the procedure. The physical status of the patient was re-assessed after the procedure. After obtaining informed consent, the endoscope was passed under direct vision. Throughout the procedure, the patient's blood pressure, pulse, and oxygen saturations were monitored continuously. The gastroscope was introduced through the mouth, and advanced to the second part of duodenum. The upper GI endoscopy was accomplished without difficulty. The patient tolerated the procedure well. Scope In: 10:27:18 AM Scope Out: 10:32:17 AM Total Procedure Duration Time 0 hours 4 minutes 59 seconds Findings: LA Grade C (one or more mucosal breaks continuous between tops of 2 or more mucosal folds, less than 75% circumference) esophagitis with no bleeding was found 36 to 40 cm from the incisors. Biopsies were taken with a cold forceps for histology. Verification of patient identification for the specimen was done. Estimated blood loss was minimal. A moderate Schatzki ring was found at the gastroesophageal junction. A guidewire was placed and the scope was withdrawn. Dilation was performed with a Savary dilator with no resistance at 57 Fr. The dilation site was examined and showed moderate mucosal disruption. A medium-sized hiatal hernia was present. The exam of the stomach was otherwise normal. The first portion of the duodenum was normal. Impression: - LA Grade C reflux esophagitis with no bleeding. Biopsied. - Moderate Schatzki ring. Dilated. - Medium-sized hiatal hernia. - Normal first portion of the duodenum. Recommendation: - Discharge patient to home. - Resume previous diet. - Continue present medications. - Await pathology results. Procedure Code(s): --- Professional --- 70564, Esophagogastroduodenoscopy, flexible, transoral; with insertion of guide wire followed by passage of dilator(s) through esophagus over guide wire 02692, 59,51, Esophagogastroduodenoscopy, flexible, transoral; with biopsy, single or multiple CPT copyright 2021 [employer]. All rights reserved. The codes documented in this report are preliminary and upon inpatient coder review may be revised to meet current compliance requirements. Julio Hackett DO 03/23/2024 10:38:27 AM This report has been signed electronically. Number of Addenda: 0 Note Initiated On: 03/23/2024 10:17 AM
--- NOTE | 2024-03-23 10:42 | PCM.POST.ANE ---
Anesthesia: Postop Eval I Current Vital Signs Temperature: 96.9 F Pulse Rate: 53 Blood Pressure: 97/60 Respiratory Rate: 16 Pulse Ox: 95 Oxygen Delivery Method: Room Air Assessment Airway patent: Yes Spontaneous unlabored respirations: Yes Mental status: Awake and Calm nausea: No Vomiting: No Anesthesia Complication: No Fluid Hydration Crystalloid volume administer (ml): 10 Total IV fluid infused: 10 Progress Note Anesthesia document: Postop Eval 1 completed: Yes
--- NOTE | 2024-03-23 10:45 | EGD_PTH ---
PATIENT: FEI GOMEZ LOC: EN U#:[id number] AGE/SX: 73/M ROOM: RE03/23/[address]: Dr. Julio Hackett DO : 1950 BED: DIS: 03/23/2024 SPEC #: [id number] RECD: 03/23/24 12:30 STATUS: RITA RERegina #: [id number] SHERRI: 03/23/24 10:[address]: Julio Hackett DEPT: SURGICAL PATHOLOGY RECD BY: Rudy Crespo ENTERED: 03/23/24 13:26 SP TYPE: EGD BIOPSY CHELSY DR: Dr. Yovany Rios MD Tissues: Esophagus, NOS Procedures: Special Stain Group I Surgery Specimen Level IV Alcian Blue/PAS (control) HEADER OPERATION: EGD with biopsy and dilatation PRE-OP DIAGNOSIS: Dysphagia, chest pain TISSUE SUBMITTED: Distal esophagus biopsy MICROSCOPIC DIAGNOSIS Distal esophagus, biopsy: Fragments of gastroesophageal mucosa with chronic inflammation. Intestinal metaplasia (goblet cell metaplasia) not identified. See comment. 03/24/2024 COMMENT Alcian blue/PAS stain with matched control is used in the evaluation of the specimen. MICROSCOPIC DESCRIPTION Slides are reviewed. GROSS DESCRIPTION Received in fixative is one container labeled with the patient's name and designated Distal esophagus biopsy. The specimen consists of multiple irregular fragments of light bartholomew soft tissue that in aggregate measure 1 x 0.6 x 0.1 cm. The specimen is totally submitted in one cassette. 03/23/2024 TC:3 CPT:[id number]
--- NOTE | 2024-03-23 13:08 | POSTOPAN2_ITS ---
Anesthesia Postop Eval I Sum Postop Eval Completion status Anesthesia document: Postop Eval 1 completed: Yes Anesthesia Postop Eval I Summary Anesthesia Postop Eval I Summary: Anesthesia Postop Eval I: Assessment Summary Airway patent Yes 03/23/24 10:43 FAMILY LIVING [email or web address].[email or web address] Spontaneous unlabored Yes 03/23/24 10:43 FAMILY LIVING EDUCATOR.[email or web address] respirations Mental status Awake,Calm 03/23/24 10:43 FAMILY LIVING EDUCATOR.GDOTT nausea No 03/23/24 10:43 FAMILY LIVING EDUCATOR.GDOTT Vomiting No 03/23/24 10:43 FAMILY LIVING EDUCATOR.GDOTT Anesthesia Postop Eval I: Fluid Summary Crystalloid volume administer 10 03/23/24 10:43 FAMILY LIVING EDUCATOR.GDOTT (ml) Colloids volume administered ( ml) Blood Product volume administered (ml) Total IV fluid infused 10 03/23/24 10:43 FAMILY LIVING EDUCATOR.GDOTT Anesthesia Postop Eval I: Summary Notes Anesthesia Complication No 03/23/24 10:43 FAMILY LIVING EDUCATOR.GDOTT Anesthesia Complication Comment: Post-operative progress note Anesthesia: Postop Eval II Evaluation Mental status: Awake Pain Level: 0 nausea: No Vomiting: No
--- NOTE | 2024-03-23 13:08 | PCM.POSTANE2 ---
Anesthesia Postop Eval I Sum Postop Eval Completion status Anesthesia document: Postop Eval 1 completed: Yes Anesthesia Postop Eval I Summary Anesthesia Postop Eval I Summary: Anesthesia Postop Eval I: Assessment Summary Airway patent Yes 03/23/24 10:43 DROP HAMMER MECHANIC.[email or web address] Spontaneous unlabored Yes 03/23/24 10:43 DROP HAMMER MECHANIC.[email or web address] respirations Mental status Awake,Calm 03/23/24 10:43 DROP HAMMER MECHANIC.GDOTT nausea No 03/23/24 10:43 DROP HAMMER MECHANIC.GDOTT Vomiting No 03/23/24 10:43 DROP HAMMER MECHANIC.GDOTT Anesthesia Postop Eval I: Fluid Summary Crystalloid volume administer 10 03/23/24 10:43 DROP HAMMER MECHANIC.GDOTT (ml) Colloids volume administered ( ml) Blood Product volume administered (ml) Total IV fluid infused 10 03/23/24 10:43 DROP HAMMER MECHANIC.GDOTT Anesthesia Postop Eval I: Summary Notes Anesthesia Complication No 03/23/24 10:43 DROP HAMMER MECHANIC.GDOTT Anesthesia Complication Comment: Post-operative progress note Anesthesia: Postop Eval II Evaluation Mental status: Awake Pain Level: 0 nausea: No Vomiting: No
== END 2024-03-23 11:23 | disposition home or self-care (01) ==
LOC: EN 09:27 → AC 09:28
PROVIDERS: PCP Family Medicine; Referring Provider Family Medicine; Visit Provider Internal Medicine Gastroenterology
PROC: 0DJ08ZZ Inspection of Upper Intestinal Tract, Via Natural or Artificial Opening Endoscopic (ICD-10-PCS; CPT 43235; principal; 2024-03-23 10:40)
DX: K22.2 Esophageal obstruction (principal); K21.00 Gastro-esophageal reflux disease with esophagitis, without bleeding; K44.9 Diaphragmatic hernia without obstruction or gangrene; I25.10 Atherosclerotic heart disease of native coronary artery without angina pectoris; E78.5 Hyperlipidemia, unspecified; Z79.82 Long term (current) use of aspirin; Z79.899 Other long term (current) drug therapy
CPT/HCPCS: 43239; 43248; 88305; 88312; A4216; C1769

== ENCOUNTER 2024-04-12 09:00 | Outpatient (RCR) | payer MEDICARE, OTHER, SELFPAY ==
--- NOTE | 2024-03-15 09:28 | ST ---
[facility] Speech Pathology [address] [place] [address] Modified Barium Swallow Study MR#: [id number] Acct: [id number] Name: FEI GOMEZ Rep #: [id number] : 1950 73 From: Staci Devine M.A., [facility]-TWISTING MACHINE OPERATOR Modified Barium Swallow Patient Information Study Date: 03/01/24 Study Time: 13:00 Direct Billable Minutes: 105 Total Minutes procedure & reportin Diagnosis: Dysphagia R13.10 Referring Physician: Darlene Charles Reason for Referral: Objectively assess swallow function, assess risk for aspiration, and determine recommendations for least restrictive diet textures and compensatory strategies to improve safety of swallow. Medical History: PMH: RBBB, Atherosclerosis of coronary artery of [place] heart without angina pectoris, Incomplete right bundle branch block (RBBB), COPD, HLD. The patient was recently seen in office visit w/ Darlene Charles CNP w/ [facility] due to episodes of dysphagia. Most recent episode was on rice. He felt it was stuck in his throat and spit up mucous w/ a little rice for ~10 minutes. He has hx of esophagram in 2022 that was unremarkable. He was referred for MBSS and EGD. 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 When foods get caught, he feels discomfort in the base of his throat, at the level of his sternum, and even some mild discomfort below his sternum. Drinks do not help to clear the sensation of retention, just time and continuing to swallow help clear the retention. He reports his mother and father both experienced similar dysphagia, but they did not have any sort of formal work up to address their issues. Dry textures give him the most difficulty. Current Diet Ordered: Regular textures / Thin liquids Dentition: Natural Teeth Mental Status: WNL Respiratory Status: Oxygenating on Room Air Penetration-Aspiration Scale Penetration-Aspiration Scale: OBJECTIVE ASSESSMENT OF SWALLOW FUNCTION (QUANTITATIVE ? PER TRIAL): PENETRATION / ASPIRATION SCALE (BARDALES): 1 = does not enter airway 2 = enters airway/above vocal folds/ejected 3 = enters airway/above vocal folds/not ejected 4 = enters airway/contacts vocal folds/ejected 5 = enters airway/contacts vocal folds/not ejected 6 = enters airway/below vocal folds/ejected 7 = enters airway/below vocal folds/not ejected despite effort 8 = enters airway/below vocal folds/no effort VIDEOFLOROSCOPIC SCALE SCORE (BARDALES): Grade I = aspiration of material that has penetrated into the laryngeal vestibule, intact cough reflex Grade II = aspiration < 10 % of the bolus, intact cough reflex Grade III = aspiration of < 10 % of the bolus, reduced cough reflex or aspiration of > 10 % of the bolus, intact cough reflex Grade IV = aspiration of > 10 % of the bolus, reduced cough reflexPenetration-Aspiration Scale Score Thin Liquid via teaspoon: Result: 1= does not enter airway Thin Liquid via teaspoon Trial 2: Result: 1= does not enter airway Thin Liquid via sequential sips: cup: Result: 1= does not enter airway [place] Thick Liquid via sequential sips: cup: Result: 1= does not enter airway Pudding via teaspoon: Result: 1= does not enter airway Comment: Esophageal screen - Mild retention in middle esophagus. Whole Cookie: Result: 1= does not enter airway Comment: Esophageal screen - Retention throughout the esophagus. Thin Liquid via sequential sips:straw: Result: 1= does not enter airway Comment: Esophageal screen - Liquid wash cleared majority of cookie retention; however, pt continued w/ retention of barium in lower esophagus w/ retrograde flow to the middle esophagus. Oral Phase Labial Seal: No Labial Escape Tongue Control During Bolus Hold: Posterior escape of less than half of bolus (sequential thin) Bolus Preparation/Mastication: Timely and efficient chewing and mashing Bolus Transport/Lingual Motion: Brisk tongue motion Oral Residue: Residue collection on oral structures (piecemeal deglutition of pudding and cookie - TWISTING MACHINE OPERATOR provided large bites) Pharyngeal Phase Initiation of Pharyngeal Swallow: Bolus head at posterior laryngeal surgace of epiglottis (sequential thin) Soft Palate Elevation: Trace column of contrast/air between soft palate and pharyngeal wall Laryngeal Elevation: Comp. Superior move thyroid cart w/comp. apprx arytenoid cart-epig pet Anterior Hyoid Excursion: Partial anterior movement Epiglottic Movement: Partial inversion (Partial 1X on second swallow of thin by tsp trial 1; otherwise, complete epiglottic inversion) Laryngeal Vestibule Closure at Height of Swallow: Complete; no air/contrast in laryngeal vestibule Pharyngeal Stripping Wave: Present - diminished Pharyngoesophageal Segment Opening: Parital distension and partial duration; parital obstruction of flow Tongue Base Retraction: Wide column of contrast between tongue base & post. pharyngeal wall Pharyngeal Residue: Collection of residue within or on pharyngeal structures Esophageal Phase Esophageal Clearance: Esophageal retention w/ retrograde flow below pharyngoesophageal seg. Treatment Strategies Effects of treatment strategies attemped:: Multiple swallows = somewhat effective in clearing pharyngeal residues Liquid wash = mostly effective in clearing pharyngeal and esophageal residues Diagnosis/Impression Diagnosis: Moderate pharyngoesophageal dysphagia R13.14 Impression: The oral phase appears grossly WNL. Mild posterior loss on the second swallow w/ sequential sips. Timely and complete mastication. The pharyngeal phase is primarily marked by... -Moderate pharyngeal residue of cookie due to decreased TB retraction, pharyngeal stripping wave, and UES opening/duration, which mostly cleared w/ use of liquid wash. Of note, the pt did not sense moderate pharyngeal retention prior to liquid wash. -Good airway closure during the swallow w/ no aspiration or laryngeal penetration observe; however, moderate pharyngeal residue may increase risk for post prandial aspiration or choking. The esophageal phase is primarily marked by... -Mild retention of pudding in middle esophagus. -Retention of cookie throughout esophagus, which mostly cleared w/ liquid wash; however, continued retention of barium in lower esophagus w/ retrograde flow to mid esophagus. Recommendations Diet: Regular Textures (Moisten dry textures) and Thin Liquids Comment: STOP meal if increased s/s of reflux, sensation of retention, or regurgitation despite use of strategies listed below and resume meal at a later time. Compensatory Strategies: Small Bites (Chew thoroughly), Small Sips, Slow Rate, Multiple Swallows (pt independently utilized multiple swallows during MBSS), Alternate bites/solids and sips/liquids (Take a sip after every 1-2 bites) and Sitting upright (During and 60min after a meal) Recommend Repeat Modified Barium Swallow: TBD (If tolerating regular textures w/ use of strategies, no need for repeat MBSS. If worsening concerns for aspiration or worsening swallowing difficulty, recommend repeat MBSS.) Need for Skilled Speech Therapy Services: Yes Comment: Recommend OP speech therapy consult to address pharyngeal dysphagia. POC to include training in strategies to improve pharyngeal and esophageal clearance to reduce risk for post prandial and reflux aspiration. Will also recommend implementation of oropharyngeal exercise program to improve TB retraction, pharyngeal stripping wave, and UES opening/duration (Loren, Effortful, Shaker, Yawn stretch). Frequency of intervention to be determined by treating OP therapist. Recommended Referrals: GI Consult (Continue to follow w/ GI for management of esophageal dysphagia.) Education Completed: 1. Described result of evaluation., 2. Pt understands evaluation & agrees with goals and treatment plan. and 7. Pt requires further education on strategies & risks. Status Active ST Patient: Active Contact Information [facility]:: Staci Devine M.A. CCC-TWISTING MACHINE OPERATOR? Speech-Language Pathologist?? [facility] [address] [place], [place] [address] [address]? [email or web address]?? [phone] 03/01/24 1078 <Electronically signed by Staci Devine M.A. CCC-TWISTING MACHINE OPERATOR> Date/Time Staci Devine M.A. CCC-TWISTING MACHINE OPERATOR
--- NOTE | 2024-03-15 13:25 | HP.SP.EVAL ---
Visit History Visit Info Date of Eval: 03/15/24 Visit: 1 [employer] Tower Climber: VIVEK History Attending Doctor: PRECIOUS Referring Doctor: PRECIOUS Reason for Referral: DYSPHAGIA/DR TO FAX Medical Diagnosis: Moderate pharyngoesophageal dysphagia R13.14 Date of Onset of Diagnosis: 2 years ago approximately. Previous speech therapy: No Other Relevant Medical History/Diagnoses/Surgery: RBBB, Atherosclerosis of coronary artery of [place] heart without angina pectoris, Incomplete right bundle branch block (RBBB), COPD, HLD. GI consult completed and Patient has EGD planned for 03/23/24. Smoking Status: Never smoker Diagnosis Diagnosis: Moderate pharyngoesophageal dysphagia R13.14 Pain Is pain an issue with your current prescribed condition?: No Personal Preferred language: [place] Patient Allergies Allergies Allergies: Allergies No Known Allergies Allergy (Verified 01/21/24 13:30) Subjective Dysphagia Symptoms Reported Symptoms/Problems with: Difficulty Swallowing Solids Current Diet Solids Current Diet: Regular Current Diet Liquids Current Liquids: Thin Comments Patient report: -: Patient reported that food sticks at times in his throat. In November he had an episode that lasted approximately 15 minutes before. Recently, he stated that rice was difficult for him. Objective Dysphagia Recommendations Swallowing Treatment: Yes Diet Texture Recommendations Solids: Regular (Level 7) Liquids: Thin (Level 0) Safety Saftey Precautions/Swallowing Recommendations (Check all that Apply): Upright Position at Least 30 Minutes After Meals, Small Sips & Bites when Eating, Multiple Swallows and Alternate Liquids & Solids Results Swallowing Within Normal Limits: No Swallowing Diagnosis: Pharyngeal Phase Dysphagia (R13.13) Subjective Oral Motor Comments Comments: No oral motor deficits. Objective Oral Motor Oral Status Dentition: WNL Labial Impairment: WNL Closure: WNL Involuntary Movement noted: No Lingual Impairment: WNL Involuntary Movement: No Jaw Impairment: WNL Involuntary Movement: No Respiratory Status Respiratory Status: Room Air Modified Barium Results Hx If Applicable Enter into a NOTE MBS Results (from prior exam): 03/15/24 09:28 Speech Therapy by Vu Roca [facility] Speech Pathology [address] [place] [address] Modified Barium Swallow Study MR#: [id number] Acct: [id number] Name: ROSENDASRAVANTHIFEI LONGDEN Rep #: [id number] : 1950 73 From: Staci Devine M.A., [facility]-ALUMINUM MOLDING MACHINE OPERATOR Modified Barium Swallow Patient Information Study Date: 03/01/24 Study Time: 13:00 Direct Billable Minutes: 105 Total Minutes procedure & reportin Diagnosis: Dysphagia R13.10 Referring Physician: Darlene Charles Reason for Referral: Objectively assess swallow function, assess risk for aspiration, and determine recommendations for least restrictive diet textures and compensatory strategies to improve safety of swallow. Medical History: PMH: RBBB, Atherosclerosis of coronary artery of [place] heart without angina pectoris, Incomplete right bundle branch block (RBBB), COPD, HLD. The patient was recently seen in office visit w/ Darlene Charles CNP w/ [facility] due to episodes of dysphagia. Most recent episode was on rice. He felt it was stuck in his throat and spit up mucous w/ a little rice for ~10 minutes. He has hx of esophagram in 2022 that was unremarkable. He was referred for MBSS and EGD. Patient informed ALUMINUM MOLDING MACHINE OPERATOR that he has had intermittent swallowing difficulty for ~2 years w/ episodes of foods getting caught occurring ~1X/month. When foods get caught, he feels discomfort in the base of his throat, at the level of his sternum, and even some mild discomfort below his sternum. Drinks do not help to clear the sensation of retention, just time and continuing to swallow help clear the retention. He reports his mother and father both experienced similar dysphagia, but they did not have any sort of formal work up to address their issues. Dry textures give him the most difficulty. Current Diet Ordered: Regular textures / Thin liquids Dentition: Natural Teeth Mental Status: WNL Respiratory Status: Oxygenating on Room Air Penetration-Aspiration Scale Penetration-Aspiration Scale: OBJECTIVE ASSESSMENT OF SWALLOW FUNCTION (QUANTITATIVE ? PER TRIAL): PENETRATION / ASPIRATION SCALE (BARDALES): 1 = does not enter airway 2 = enters airway/above vocal folds/ejected 3 = enters airway/above vocal folds/not ejected 4 = enters airway/contacts vocal folds/ejected 5 = enters airway/contacts vocal folds/not ejected 6 = enters airway/below vocal folds/ejected 7 = enters airway/below vocal folds/not ejected despite effort 8 = enters airway/below vocal folds/no effort VIDEOFLOROSCOPIC SCALE SCORE (BARDALES): Grade I = aspiration of material that has penetrated into the laryngeal vestibule, intact cough reflex Grade II = aspiration < 10 % of the bolus, intact cough reflex Grade III = aspiration of < 10 % of the bolus, reduced cough reflex or aspiration of > 10 % of the bolus, intact cough reflex Grade IV = aspiration of > 10 % of the bolus, reduced cough reflexPenetration-Aspiration Scale Score Thin Liquid via teaspoon: Result: 1= does not enter airway Thin Liquid via teaspoon Trial 2: Result: 1= does not enter airway Thin Liquid via sequential sips: cup: Result: 1= does not enter airway [place] Thick Liquid via sequential sips: cup: Result: 1= does not enter airway Pudding via teaspoon: Result: 1= does not enter airway Comment: Esophageal screen - Mild retention in middle esophagus. Whole Cookie: Result: 1= does not enter airway Comment: Esophageal screen - Retention throughout the esophagus. Thin Liquid via sequential sips:straw: Result: 1= does not enter airway Comment: Esophageal screen - Liquid wash cleared majority of cookie retention; however, pt continued w/ retention of barium in lower esophagus w/ retrograde flow to the middle esophagus. Oral Phase Labial Seal: No Labial Escape Tongue Control During Bolus Hold: Posterior escape of less than half of bolus (sequential thin) Bolus Preparation/Mastication: Timely and efficient chewing and mashing Bolus Transport/Lingual Motion: Brisk tongue motion Oral Residue: Residue collection on oral structures (piecemeal deglutition of pudding and cookie - ALUMINUM MOLDING MACHINE OPERATOR provided large bites) Pharyngeal Phase Initiation of Pharyngeal Swallow: Bolus head at posterior laryngeal surgace of epiglottis (sequential thin) Soft Palate Elevation: Trace column of contrast/air between soft palate and pharyngeal wall Laryngeal Elevation: Comp. Superior move thyroid cart w/comp. apprx arytenoid cart-epig pet Anterior Hyoid Excursion: Partial anterior movement Epiglottic Movement: Partial inversion (Partial 1X on second swallow of thin by tsp trial 1; otherwise, complete epiglottic inversion) Laryngeal Vestibule Closure at Height of Swallow: Complete; no air/contrast in laryngeal vestibule Pharyngeal Stripping Wave: Present - diminished Pharyngoesophageal Segment Opening: Parital distension and partial duration; parital obstruction of flow Tongue Base Retraction: Wide column of contrast between tongue base & post. pharyngeal wall Pharyngeal Residue: Collection of residue within or on pharyngeal structures Esophageal Phase Esophageal Clearance: Esophageal retention w/ retrograde flow below pharyngoesophageal seg. Treatment Strategies Effects of treatment strategies attemped:: Multiple swallows = somewhat effective in clearing pharyngeal residues Liquid wash = mostly effective in clearing pharyngeal and esophageal residues Diagnosis/Impression Diagnosis: Moderate pharyngoesophageal dysphagia R13.14 Impression: The oral phase appears grossly WNL. Mild posterior loss on the second swallow w/ sequential sips. Timely and complete mastication. The pharyngeal phase is primarily marked by... -Moderate pharyngeal residue of cookie due to decreased TB retraction, pharyngeal stripping wave, and UES opening/duration, which mostly cleared w/ use of liquid wash. Of note, the pt did not sense moderate pharyngeal retention prior to liquid wash. -Good airway closure during the swallow w/ no aspiration or laryngeal penetration observe; however, moderate pharyngeal residue may increase risk for post prandial aspiration or choking. The esophageal phase is primarily marked by... -Mild retention of pudding in middle esophagus. -Retention of cookie throughout esophagus, which mostly cleared w/ liquid wash; however, continued retention of barium in lower esophagus w/ retrograde flow to mid esophagus. Recommendations Diet: Regular Textures (Moisten dry textures) and Thin Liquids Comment: STOP meal if increased s/s of reflux, sensation of retention, or regurgitation despite use of strategies listed below and resume meal at a later time. Compensatory Strategies: Small Bites (Chew thoroughly), Small Sips, Slow Rate, Multiple Swallows (pt independently utilized multiple swallows during MBSS), Alternate bites/solids and sips/liquids (Take a sip after every 1-2 bites) and Sitting upright (During and 60min after a meal) Recommend Repeat Modified Barium Swallow: TBD (If tolerating regular textures w/ use of strategies, no need for repeat MBSS. If worsening concerns for aspiration or worsening swallowing difficulty, recommend repeat MBSS.) Need for Skilled Speech Therapy Services: Yes Comment: Recommend OP speech therapy consult to address pharyngeal dysphagia. POC to include training in strategies to improve pharyngeal and esophageal clearance to reduce risk for post prandial and reflux aspiration. Will also recommend implementation of oropharyngeal exercise program to improve TB retraction, pharyngeal stripping wave, and UES opening/duration (Loren, Effortful, Shaker, Yawn stretch). Frequency of intervention to be determined by treating OP therapist. Recommended Referrals: GI Consult (Continue to follow w/ GI for management of esophageal dysphagia.) Education Completed: 1. Described result of evaluation., 2. Pt understands evaluation & agrees with goals and treatment plan. and 7. Pt requires further education on strategies & risks. Status Active ST Patient: Active Contact Information [facility] Speech Therapy:: Staci Devine M.A. CCC-ALUMINUM MOLDING MACHINE OPERATOR? Speech-Language Pathologist?? [facility] [address] [place] [address]? [email or web address]?? [phone] 03/01/24 1504 <Electronically signed by Staci Devine M.A. CCC-ALUMINUM MOLDING MACHINE OPERATOR> Date/Time Staci Devine M.A., CCC-ALUMINUM MOLDING MACHINE OPERATOR Initialized on 03/15/24 09:28 - END OF NOTE Swallowing Performance Scale Swallowing Performance Scale Swallowing Performance Scale Result: 5 Moderate Reference: Neuro-QoL instrument Radiation Oncology Patient Plan Plan Plan: Patient was given a home exercise program that he is able to complete independently. He was educated, along with his , on diet recommendations, results of MBS, and home program. All details were provided in written form. He is to complete exercises for 4-6 weeks then return to speech therapy to re-assess at that time. Recommendations Treatment Warranted: Yes Treatment Warranted: Dysphagia Progress Prognosis: Good Frequency Frequency: Monthly Duration: 3 Months Visits in this POC: 3 Patient/Family Goal Patient/Family Goal: Patient wants to be able to eat without difficulty. Goals that are Established Determination:: Goals will be added/modified as deemed necessary and appropriate. Therapy will be discontinued when results of re-evaluation indicate therapy is no longer needed or lack of progress has been documented. Goal #1-5 Goal #1: Patient will report compliance with daily home exercise program. Goal #2: Re-assessment for dysphagia symptoms, diet tolerance and education. Education Patient has Indicated that the Following Identified Educational Needs: None The Patient has indicated that they have no educational or learning abilities that may effect their care.: Yes Patient Instruction Patient Education: Diagnosis, Treatment Plan, Safety Precautions, Diet Level and Home Exercise Program Person Taught: Patient and Significant Other Teaching Method: Discussion Response to teaching: Verbalize Understanding
--- NOTE | 2024-04-12 09:36 | HP.SP.DC_ITS ---
ST Discharge Summary Discharged: Discharge: Larry Stacy is discharged from speech therapy at [facility] as of April 13, 2024. He was evaluated on 03/15/24 and provided with a home program for exercises for pharyngoesophageal dysphagia. He completed a follow up session with only one episode of food sticking and stated he was able to take drinks to remove the feeling. It was much less in duration than previous time ( 15 minutes compared to 30 seconds), and he reported no other symptoms. He was educated on returning to therapy as necessary. Recommended exercises continue twice a day until after EGD then reduce to once daily. He reported that he has a repeat EGD in 3 months and will discuss with GI should he need to return to speech therapy at that time. Patient agrees with discharge. Thank you for allowing me to participate in the care of your patient.
== END 2024-04-12 13:13 | disposition home or self-care (01) ==
LOC: SP 09:00
PROVIDERS: PCP Family Medicine; Referring Provider Nurse Practitioner Acute Care; Visit Provider Nurse Practitioner Acute Care
DX: R13.12 Dysphagia, oropharyngeal phase (principal)
CPT/HCPCS: 92526; 92610

== ENCOUNTER 2024-06-28 05:53 | Day surgery (SDC) | payer MEDICARE, OTHER, SELFPAY ==
--- NOTE | 2024-06-24 16:42 | PAT.ANE_ITS ---
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 When Was Last Pacemaker Check QUESTION #4 FULL TEXT: You/Your Family Experience fever (hyperthermia) with Anesthesia Last Oral Intake Last Oral intake: Last Oral Intake NPO since Meds taken in AM with sips of water? Meds patient instructed to take am of surgery PONV PONV - mobile web application developer: PONV - mobile web application developer Female No 06/24/24 12:33 HX of Motion Sickness No 06/24/24 12:33 HX of N/V After Surgery No 06/24/24 12:33 Non-Smoker Yes 06/24/24 12:33 Duration of Surgery greater No 06/24/24 12:33 than 60 minutes Number of Risk Factors 1 06/24/24 12:33 PONV Score Low Risk 06/24/24 12:33 Height & Weight Height & Weight: Anesthesia: Height & Weight Height 5 ft 8 in 03/23/24 09:59 Respiratory Assessment Respiratory Assessment - mobile web application developer: Respiratory Tract Infection Hx - mobile web application developer Hx Respiratory Tract Infection No 06/24/24 12:33 STOP Sleep Apnea STOP Sleep Apnea - mobile web application developer: STOP Sleep Apnea - mobile web application developer Hx Hypertension No 06/24/24 12:33 Hx Sleep Apnea Yes 06/24/24 12:33 CPAP No 06/24/24 12:33 BIPAP No 06/24/24 12:33 Do you snore loudly (louder than talking or can be heard Do you often feel tired/ fatigued/ sleepy during daytime? Has anyone observed you stop breathing during sleep? STOP Results Positive 06/24/24 12:33 QUESTION #5 FULL TEXT : Do you snore loudly (louder than talking or can be heard through closed doors)? 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 Specify any problems Hx of Preganancy in last 3 N/A 06/24/24 12:33 Months Nurse Filling Out Transfusion MGRIFFITH 06/24/24 12:33 & Questions: Date: 06/24/24 06/24/24 12:33 Time: 12:34 06/24/24 12:33 Patient unable to answer at this time (ie. confused, unrespo /Reproduction History /Reproductive History - mobile web application developer: /Reproductive Hx- mobile web application developer Hx Now Gestational Age (in weeks): EDC: Hx Hx Para Hx Section SAB PFSH Medical History Wears contact lenses Wears glasses Non-smoker History of stress test Cardiology follow-up encounter Right bundle branch block (RBBB) Atherosclerosis of coronary artery of [place] heart without angina pectoris Incomplete right bundle branch block (RBBB) COPD (chronic obstructive pulmonary disease) Hyperlipidemia Home Medications ?Medication ?Instructions ?Recorded ?Last Taken ?Type aspirin 81 mg tablet,delayed 81 mg PO QDAY 03/07/17 History release (Adult Low Dose Aspirin) kbcgbupv-xchkdedo-oldfl acid 400 1 tab PO DAILY Unknown History mcg-vit K 20 mcg-lycop 300 mcg tablet (One-A-Day Men's Multivitamin) omega-3 fatty acids 500 mg capsule 1,000 mg PO QDAY Unknown History cholecalciferol (vitamin D3) 50 2,000 unit PO DAILY Unknown History mcg (2,000 unit) capsule ferrous sulfate 324 mg (65 mg 324 mg PO 3XW 01/21/24 U nknown History iron) tablet,delayed release nnsmvjhtwdd-rdichmicg-izyn527-hyal 1 tab PO BID Unknown History 750 mg-100 mg-125 mg-1.65 mg tablet (Glucosamine Chondroit Complx Advan) niacinamide 500 mg tablet 500 mg PO QDAY 01/21/24 Unkn own History tamsulosin 0.4 mg capsule 0.8 mg PO DAILY 01/21/24 Unk nown History turmeric root extract 500 mg 500 mg PO BID 01/21/24 History capsule simvastatin 40 mg tablet 40 mg PO QHS #90 tabs Unknown Rx isosorbide mononitrate 30 mg 30 mg PO DAILY #90 tabs 0 04/05/24 Unknown Rx tablet,extended release 24 hr pantoprazole 40 mg tablet,delayed 40 mg PO BID esophag itis #180 tabs 04/05/24 Unknown Rx release Allergy/AdvReac Type Severity Reaction Status Date / Time No Known Allergies Allergy Verified 06/24/24 12:28 Family History Father CAD (coronary artery disease) 51 y/o had [place] and CABG Surgical History (Updated 06/24/24 @ 12:40 by Carlee Quigley) History of esophagogastroduodenoscopy (EGD) H/O wrist surgery History of left heart catheterization (05/12/18) History of appendectomy H/O right knee surgery Social History Smoking Status: Never smoker alcohol intake: never substance use type: does not use caffeine: Yes Type: carbonated beverages Audit: Pertinent Findings Pertinent Findings EKG Perinent findings: EKG 12/29/23: Sinus Rhythm -Right bundle branch block with left axis -bifascicular block Stress test pertinent findings: Exercise stress test 08/23/20: Normal exercise myocardial perfusion stress test at a high workload. Preserved ejection fraction. Heart catheterization pertinent findings: 05/12/18: distal circ disease in a small vessel, at this time medical therapy was recommended Recommendation Anesthesia Recommendation Anesthesia recommendation: F/U recommended (Unable to see cardiology clearance note that was uploaded, all I can see is the face sheet that states cards clearance was recommended) Follow up Details Outside Record Recommendation: Yes Outside Record Rec Details: cardiology clearance notes
--- NOTE | 2024-06-24 21:40 | PAT.ANE_ITS ---
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 When Was Last Pacemaker Check QUESTION #4 FULL TEXT: You/Your Family Experience fever (hyperthermia) with Anesthesia Last Oral Intake Last Oral intake: Last Oral Intake NPO since Meds taken in AM with sips of water? Meds patient instructed to take am of surgery PONV PONV - knitting demonstrator: PONV - knitting demonstrator Female No 06/24/24 12:33 HX of Motion Sickness No 06/24/24 12:33 HX of N/V After Surgery No 06/24/24 12:33 Non-Smoker Yes 06/24/24 12:33 Duration of Surgery greater No 06/24/24 12:33 than 60 minutes Number of Risk Factors 1 06/24/24 12:33 PONV Score Low Risk 06/24/24 12:33 Height & Weight Height & Weight: Anesthesia: Height & Weight Height 5 ft 8 in 03/23/24 09:59 Respiratory Assessment Respiratory Assessment - knitting demonstrator: Respiratory Tract Infection Hx - knitting demonstrator Hx Respiratory Tract Infection No 06/24/24 12:33 STOP Sleep Apnea STOP Sleep Apnea - knitting demonstrator: STOP Sleep Apnea - knitting demonstrator Hx Hypertension No 06/24/24 12:33 Hx Sleep Apnea Yes 06/24/24 12:33 CPAP No 06/24/24 12:33 BIPAP No 06/24/24 12:33 Do you snore loudly (louder than talking or can be heard Do you often feel tired/ fatigued/ sleepy during daytime? Has anyone observed you stop breathing during sleep? STOP Results Positive 06/24/24 12:33 QUESTION #5 FULL TEXT : Do you snore loudly (louder than talking or can be heard through closed doors)? 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 Specify any problems Hx of Preganancy in last 3 N/A 06/24/24 12:33 Months Nurse Filling Out Transfusion MGRIFFITH 06/24/24 12:33 & Questions: Date: 06/24/24 06/24/24 12:33 Time: 12:34 06/24/24 12:33 Patient unable to answer at this time (ie. 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: /Reproductive Hx- knitting demonstrator Hx Now Gestational Age (in weeks): EDC: Hx Hx Para Hx Section SAB PFSH Medical History Wears contact lenses Wears glasses Non-smoker History of stress test Cardiology follow-up encounter Right bundle branch block (RBBB) Atherosclerosis of coronary artery of [place] heart without angina pectoris Incomplete right bundle branch block (RBBB) COPD (chronic obstructive pulmonary disease) Hyperlipidemia Home Medications ?Medication ?Instructions ?Recorded ?Last Taken ?Type aspirin 81 mg tablet,delayed 81 mg PO QDAY 03/07/17 History release (Adult Low Dose Aspirin) dzmazgag-zenwvozz-wnlll acid 400 1 tab PO DAILY Unknown History mcg-vit K 20 mcg-lycop 300 mcg tablet (One-A-Day Men's Multivitamin) omega-3 fatty acids 500 mg capsule 1,000 mg PO QDAY Unknown History cholecalciferol (vitamin D3) 50 2,000 unit PO DAILY Unknown History mcg (2,000 unit) capsule ferrous sulfate 324 mg (65 mg 324 mg PO 3XW 01/21/24 U nknown History iron) tablet,delayed release mhytihgthzw-quvurwzfv-ihjl454-hyal 1 tab PO BID Unknown History 750 mg-100 mg-125 mg-1.65 mg tablet (Glucosamine Chondroit Complx Advan) niacinamide 500 mg tablet 500 mg PO QDAY 01/21/24 Unkn own History tamsulosin 0.4 mg capsule 0.8 mg PO DAILY 01/21/24 Unk nown History turmeric root extract 500 mg 500 mg PO BID 01/21/24 History capsule simvastatin 40 mg tablet 40 mg PO QHS #90 tabs Unknown Rx isosorbide mononitrate 30 mg 30 mg PO DAILY #90 tabs 0 04/05/24 Unknown Rx tablet,extended release 24 hr pantoprazole 40 mg tablet,delayed 40 mg PO BID esophag itis #180 tabs 04/05/24 Unknown Rx release Allergy/AdvReac Type Severity Reaction Status Date / Time No Known Allergies Allergy Verified 06/24/24 12:28 Family History Father CAD (coronary artery disease) 51 y/o had [place] and CABG Surgical History (Updated 06/24/24 @ 12:40 by Carlee Quigley) History of esophagogastroduodenoscopy (EGD) H/O wrist surgery History of left heart catheterization (05/12/18) History of appendectomy H/O right knee surgery Social History Smoking Status: Never smoker alcohol intake: never substance use type: does not use caffeine: Yes Type: carbonated beverages Audit: Pertinent Findings HISTORY of Pertinent Findings History of Pertinent Findings: EKG Pertinent Findings EKG Perinent findings EKG 12/29/23: Sinus Rhythm 06/24/24 16:48 -Right bundle branch block with left axis -bifascicular block Stress Test Pertinent Findings Stress test pertinent findings Exercise stress test 08/23/20: 06/24/24 16:48 Normal exercise myocardial perfusion stress test at a high workload. Preserved ejection fraction. Heart Catheterization Pertinent Findings Heart catheterization 05/12/18: distal circ disease 06/24/24 16:48 pertinent findings in a small vessel, at this time medical therapy was recommended Pertinent Findings Consult pertinent findings: Cleared by cardiology on 04/27/24 by Jackie Castillo PA-C Recommendation Anesthesia Recommendation Anesthesia recommendation: OPTIMIZED for anesthesia
[2024-06-28] VITALS (8 sets, daily range): BP systolic 89–124; BP diastolic 58–77; PULSE 47–55; RESP 14–18; TEMP 36.1–36.3; O2SAT 95–98; BMI 26.9
[2024-06-28] MEDS: Lactated Ringers 1,000 ML 15 ML IV (06:45)
--- NOTE | 2024-06-28 06:46 | PCM.HP.STD ---
HPI - General General Date of Admission: 06/28/24 Date of Service: 06/28/24 Chief Complaint: dysphagia HPI Narrative FEI GOMEZ, is a 73 M who - reports issues with dysphagia upper esophagus - 3 weeks ago - food stuck bad - dining out - spitting up mucus trying to dislodge - this was with rice - episodes are infrequent - usually clears quickly but this episode 3 weeks ago lasted much longer - denies any issues with pills - denies any N/V - denies any HB - denies any EtOH - non-smoker - pop daily - very little use of NSAIDS - denies any weight loss - denies any h/o EGD - dysphagia to dry foods - denies any change in bowel habits - his last colonoscopy was 3 years ago - per patient this was negative - denies any lung disease, RBBB, CAD, HTN - stable, denies any angina, CORBIN or palptations - denies any kidney disease [facility] Medical History Wears contact lenses Wears glasses Non-smoker History of stress test Cardiology follow-up encounter Right bundle branch block (RBBB) Atherosclerosis of coronary artery of [place] heart without angina pectoris Incomplete right bundle branch block (RBBB) COPD (chronic obstructive pulmonary disease) Hyperlipidemia Home Medications ?Medication ?Instructions ?Recorded ?Last Taken ?Type aspirin 81 mg tablet,delayed 81 mg PO QDAY 03/07/17 03/21/24 History release (Adult Low Dose Aspirin) xqrojzwi-kaxaskot-yzxlv acid 400 1 tab PO DAILY 03/07/17 Unknown History mcg-vit K 20 mcg-lycop 300 mcg tablet (One-A-Day Men's Multivitamin) omega-3 fatty acids 500 mg capsule 1,000 mg PO QDAY 03/07/17 Unknown History cholecalciferol (vitamin D3) 50 2,000 unit PO DAILY 12/23/18 Unknown History mcg (2,000 unit) capsule ferrous sulfate 324 mg (65 mg 324 mg PO 3XW 01/21/24 Unknown History iron) tablet,delayed release iofazdullfs-cmstotxuy-mrue086-hyal 1 tab PO BID 01/21/24 Unknown History 750 mg-100 mg-125 mg-1.65 mg tablet (Glucosamine Chondroit Complx Advan) niacinamide 500 mg tablet 500 mg PO QDAY 01/21/24 Unknown History tamsulosin 0.4 mg capsule 0.8 mg PO DAILY 01/21/24 Unknown History turmeric root extract 500 mg 500 mg PO BID 01/21/24 03/22/24 History capsule simvastatin 40 mg tablet 40 mg PO QHS #90 tabs 03/01/24 Unknown Rx isosorbide mononitrate 30 mg 30 mg PO DAILY #90 tabs 04/05/24 06/28/24 05:30 Rx tablet,extended release 24 hr pantoprazole 40 mg tablet,delayed 40 mg PO BID esophagitis #180 tabs 04/05/24 06/28/24 05:30 Rx release Allergy/AdvReac Type Severity Reaction Status Date / Time No Known Allergies Allergy Verified 06/28/24 06:25 Family History Father CAD (coronary artery disease) 51 y/o had [place] and CABG Surgical History History of esophagogastroduodenoscopy (EGD) H/O wrist surgery History of left heart catheterization (05/12/18) History of appendectomy H/O right knee surgery Social History Smoking Status: Never smoker alcohol intake: never substance use type: does not use caffeine: Yes Type: carbonated beverages ROS Constitutional Constitutional: Denies fatigue, fever(s), poor appetite, weight gain or weight loss Gastrointestinal Gastrointestinal: Denies belching, bloating, change in bowel habits, change in stool character, chewing difficulty, coffee ground emesis, constipation, cramping, diarrhea, dyspepsia, dysphagia, early satiety, excessive flatus, fecal incontinence, heartburn, hematemesis, hematochezia, hemorrhoids, loose stools, melena, nausea, odynophagia, rectal bleeding, tenesmus, vomiting or weight changes Vital Signs Vital Signs Vital Signs: 06/28/24 06:26 06/28/24 06:26 Temperature 97 F L Temperature Source Temporal Pulse Rate 47 L Respiratory Rate 16 Respiratory Pattern Normal Blood Pressure 124/77 H Blood Pressure Mean 92 Blood Pressure Source Monitor Blood Pressure Position Semi-Fowlers Blood Pressure Location Right Arm Pulse Ox 98 Oxygen Delivery Method Room Air Weight Weight: 177 lb 4.026 oz Body Mass Index (BMI) 26.9 Physical Exam Const alert, oriented x3, no apparent distress and healthy appearing General Appearance: cooperative GI normal to inspection, nondistended, normoactive bowel sounds, soft to palpation, non-tender and non-distended Percussion: normal to percussion Rectal Exam: deferred Assessment & Plan Assessment/Plan (1) Dysphagia: QUALIFIERS: Dysphagia type: oropharyngeal phase Qualified Code(s): R13.12 - Dysphagia, oropharyngeal phase PLAN: Assessment & Plan Assessment/Plan (1) Dysphagia: QUALIFIERS: Dysphagia type: oropharyngeal phase Qualified Code(s): R13.12 - Dysphagia, oropharyngeal phase (2) Chest pain: PLAN: Plan 1) Dysphagia: Status: Acute Qualifiers: Dysphagia type: oropharyngeal phase Qualified Code(s): R13.12 - Dysphagia, oropharyngeal phase Orders: Orders Swallowing Function w/Video Today R13.10 - Dysphagia, unspecified Plan A 73-year-old male patient presented for a consultation, reporting complaints of oropharyngeal dysphagia for over 2 years. An esophagram performed in April 2022 was unremarkable. The patient reports a family history of similar issues, with his mother experiencing similar problems. He denies any nausea, vomiting, heartburn, or weight loss. The episodes of dysphagia are infrequent, but his most recent episode lasted over 5 minutes with rice. I have scheduled him for a modified barium swallow (MBS) and an esophagogastroduodenoscopy (EGD). Plan Details Follow Up:
--- NOTE | 2024-06-28 07:00 | EGD_PTH ---
PATIENT: FEI GOMEZ LOC: EN U#:[id number] AGE/SX: 73/M ROOM: RE06/28/[address]: Dr. Julio Hackett DO : 1950 BED: DIS: 06/28/2024 SPEC #: [id number] RECD: 06/28/24 12:10 STATUS: RITA RERegina #: [id number] SHERRI: 06/28/24 07:[address]: Julio Hackett DEPT: SURGICAL PATHOLOGY RECD BY: Anthony Faith ENTERED: 06/28/24 13:07 SP TYPE: EGD BIOPSY CHELSY DR: Dr. Yovany Rios MD Tissues: A - Esophagus, NOS Procedures: Surgery Specimen Level IV HEADER OPERATION: EGD with biopsies PRE-OP DIAGNOSIS: Dysphagia TISSUE SUBMITTED: A- Distal esophagus biopsy MICROSCOPIC DIAGNOSIS A. Esophagus, distal, biopsy: * Benign squamous epithelium * Oxyntocardiac type mucosa with mild chronic inflammation, negative for goblet cells MICROSCOPIC DESCRIPTION Slides are reviewed. GROSS DESCRIPTION A. Received in fixative is one container labeled with the patient's name and designated Distal esophagus biopsy. The specimen consists of multiple irregular fragments of light bartholomew soft tissue that in aggregate measure 1.2 x 0.3 x 0.2 cm. The specimen is totally submitted in one cassette. 06/28/2024 CPT:83086
--- NOTE | 2024-06-28 07:07 | PCM.PRE.AN2 ---
ASA Classification* ASA Classification ASA Classification: 3 Assessment & Plan Anesthesia* Anesthesia Assessment Anesthesia Assessment: Discussed sedation and/or anesthesia options, risks, benefits, and alternatives with patient/parents/legal guardian/POA. Questions invited. The patient/parents/legal guardian/POA seems to understand and agrees to proceed with anesthesia plan. Reviewed the physical assessment, medical history, allergy history and patient home medications list prior to surgery/procedure/anesthetic and documented any changes. Performed airway and anesthesia risk assessments. Anesthesia Type Anesthesia Type: MAC History Source History Obtained from:: Patient and Chart Anesthesia Focused Assessment* Temperature: 97 F Pulse Rate: 47 Blood Pressure: 124/77 Respiratory Rate: 16 Pulse Ox: 98 Oxygen Delivery Method: Room Air Airway Assessment Mouth opens: >3 cm Mallampati Score: II Teeth Condition: Intact Focused Labs Anesthesia Preop lab: CBC WBC 3.6 K/mm3 (4.4-11.0) L 03/04/24 09:43 03/04/24 RBC 4.11 M/mm3 (4.6-6.2) L 03/04/24 09:43 03/04/24 Hgb 13.8 g/dL (13.0-16.5) 03/04/24 09:43 03/04/24 Hct 41.9 % (40-54) 03/04/24 09:43 03/04/24 Plt Count 224 K/mm3 (150-450) 03/04/24 09:43 03/04/24 CHEMISTRY Potassium 4.3 mmol/L (3.5-5.1) 03/04/24 09:43 03/04/24 Sodium 138 mmol/L (136-145) 03/04/24 09:43 03/04/24 BUN 19 mg/dL (7-18) H 03/04/24 09:43 03/04/24 Creatinine 0.90 mg/dL (0.70-1.30) 03/04/24 09:43 03/04/24 Glucose 88 mg/dL (74-106) 03/04/24 09:43 03/04/24 POC Glucose 104 mg/dL (70-110) 10/01/19 09:49 10/01/19 TSH 1.84 uIU/mL (0.358-3.74) 08/16/20 16:28 08/16/20 COAG PT 13.5 SECONDS (11.7-14.9) 10/01/19 09:40 10/01/19 Pre-Assessment Diagnosis/Proposed Procedure Planned Operative Procedure(s): EGD Anesthesia History Anesthesia History - 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 When Was Last Pacemaker Check QUESTION #4 FULL TEXT: You/Your Family Experience fever (hyperthermia) with Anesthesia Last Oral Intake Last Oral intake: Last Oral Intake NPO since 19:00 06/28/24 06:26 Meds taken in AM with sips of Yes 06/28/24 06:26 water? Meds patient instructed to take am of surgery PONV PONV - capacity planning analyst: PONV - capacity planning analyst Female No 06/24/24 12:33 HX of Motion Sickness No 06/24/24 12:33 HX of N/V After Surgery No 06/24/24 12:33 Non-Smoker Yes 06/24/24 12:33 Duration of Surgery greater No 06/24/24 12:33 than 60 minutes Number of Risk Factors 1 06/24/24 12:33 PONV Score Low Risk 06/24/24 12:33 Height & Weight Height & Weight: Anesthesia: Height & Weight Height 5 ft 8 in 06/28/24 06:26 Weight: 80.4 kg 06/28/24 06:26 Body Mass Index (BMI) 26.9 06/28/24 06:26 Respiratory Assessment Respiratory Assessment - capacity planning analyst: Respiratory Tract Infection Hx - capacity planning analyst Hx Respiratory Tract Infection No 06/24/24 12:33 STOP Sleep Apnea STOP Sleep Apnea - capacity planning analyst: STOP Sleep Apnea - capacity planning analyst Hx Hypertension No 06/24/24 12:33 Hx Sleep Apnea Yes 06/24/24 12:33 CPAP No 06/24/24 12:33 BIPAP No 06/24/24 12:33 Do you snore loudly (louder than talking or can be heard Do you often feel tired/ fatigued/ sleepy during daytime? Has anyone observed you stop breathing during sleep? STOP Results Positive 06/24/24 12:33 QUESTION #5 FULL TEXT : Do you snore loudly (louder than talking or can be heard through closed doors)? 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 Specify any problems Hx of Preganancy in last 3 N/A 06/24/24 12:33 Months Nurse Filling Out Transfusion MGRIFFITH 06/24/24 12:33 & Questions: Date: 06/24/24 06/24/24 12:33 Time: 12:34 06/24/24 12:33 Patient unable to answer at this time (ie. confused, unrespo /Reproduction History /Reproductive History - capacity planning analyst: /Reproductive Hx- capacity planning analyst Hx Now Gestational Age (in weeks): EDC: Hx Hx Para Hx Section SAB Active Medications Active Medications: Current Medications Generic Name Dose Route Start Last Admin Trade Name Freq PRN Reason Stop Dose Admin Lactated Ringer's 1,000 mls @ 15 mls/hr 06/28/24 06:45 IV .Q48H RAMAKRISHNA PFSH Medical History Wears contact lenses Wears glasses Non-smoker History of stress test Cardiology follow-up encounter Right bundle branch block (RBBB) Atherosclerosis of coronary artery of [place] heart without angina pectoris Incomplete right bundle branch block (RBBB) COPD (chronic obstructive pulmonary disease) Hyperlipidemia Home Medications ?Medication ?Instructions ?Recorded ?Last Taken ?Type aspirin 81 mg tablet,delayed 81 mg PO QDAY 03/07/17 03/21/24 History release (Adult Low Dose Aspirin) wapjrghn-qhulbyjz-maimw acid 400 1 tab PO DAILY 03/07/17 Unknown History mcg-vit K 20 mcg-lycop 300 mcg tablet (One-A-Day Men's Multivitamin) omega-3 fatty acids 500 mg capsule 1,000 mg PO QDAY 03/07/17 Unknown History cholecalciferol (vitamin D3) 50 2,000 unit PO DAILY 12/23/18 Unknown History mcg (2,000 unit) capsule ferrous sulfate 324 mg (65 mg 324 mg PO 3XW 01/21/24 Unknown History iron) tablet,delayed release hrgsrzqqiac-eshztkfnv-[id number]-hyal 1 tab PO BID 01/21/24 Unknown History 750 mg-100 mg-125 mg-1.65 mg tablet (Glucosamine Chondroit Complx Advan) niacinamide 500 mg tablet 500 mg PO QDAY 01/21/24 Unknown History tamsulosin 0.4 mg capsule 0.8 mg PO DAILY 01/21/24 Unknown History turmeric root extract 500 mg 500 mg PO BID 01/21/24 03/22/24 History capsule simvastatin 40 mg tablet 40 mg PO QHS #90 tabs 03/01/24 Unknown Rx isosorbide mononitrate 30 mg 30 mg PO DAILY #90 tabs 04/05/24 06/28/24 05:30 Rx tablet,extended release 24 hr pantoprazole 40 mg tablet,delayed 40 mg PO BID esophagitis #180 tabs 04/05/24 06/28/24 05:30 Rx release Allergy/AdvReac Type Severity Reaction Status Date / Time No Known Allergies Allergy Verified 06/28/24 06:25 Family History Father CAD (coronary artery disease) 51 y/o had AK and CABG Surgical History History of esophagogastroduodenoscopy (EGD) H/O wrist surgery History of left heart catheterization (05/12/18) History of appendectomy H/O right knee surgery Social History Smoking Status: Never smoker alcohol intake: never substance use type: does not use caffeine: Yes Type: carbonated beverages Addt'l Information Additional Findings: RBBB on EKG Review of Systems (Anesthesia) ROS Narrative System reviewed and no additional complaints, except as documented.
--- NOTE | 2024-06-28 07:26 | OP.EGD_ITS ---
Patient Name: Larry Stacy Procedure Date: 06/28/2024 7:07 AM Date of : 1950 Age: 73 Procedure: Upper GI endoscopy Indications: Follow-up of reflux esophagitis Providers: Julio Hackett DO Referring MD: Yovany Rios Medicines: Monitored Anesthesia Care Patient Profile: This is a 73 year old male. Refer to note in patient chart for documentation of history and physical. Patient has symptoms of chronic heartburn. Complications: No immediate complications. Procedure: Pre-Anesthesia Assessment: - Prior to the procedure, a History and Physical was performed, and patient medications and allergies were reviewed. The patient is competent. The risks and benefits of the procedure and the sedation options and risks were discussed with the patient. All questions were answered and informed consent was obtained. Patient identification and proposed procedure were verified by the physician in the pre-procedure area. Mental Status Examination: alert and oriented. Airway Examination: normal oropharyngeal airway and neck mobility. Respiratory Examination: clear to auscultation. CV Examination: normal. Prophylactic Antibiotics: The patient does not require prophylactic antibiotics. Prior Anticoagulants: The patient has taken no anticoagulant or antiplatelet agents except for NSAID medication. ASA Grade Assessment: II - A patient with mild systemic disease. After reviewing the risks and benefits, the patient was deemed in satisfactory condition to undergo the procedure. The anesthesia plan was to use monitored anesthesia care (MAC). Immediately prior to administration of medications, the patient was re-assessed for adequacy to receive sedatives. The heart rate, respiratory rate, oxygen saturations, blood pressure, adequacy of pulmonary ventilation, and response to care were monitored throughout the procedure. The physical status of the patient was re-assessed after the procedure. After obtaining informed consent, the endoscope was passed under direct vision. Throughout the procedure, the patient's blood pressure, pulse, and oxygen saturations were monitored continuously. The gastroscope was introduced through the mouth, and advanced to the second part of duodenum. The upper GI endoscopy was accomplished without difficulty. The patient tolerated the procedure well. Scope In: 7:21:29 AM Scope Out: 7:23:09 AM Total Procedure Duration Time 0 hours 1 minute 40 seconds Findings: No gross lesions were noted in the entire esophagus. Biopsies were taken with a cold forceps for histology. Verification of patient identification for the specimen was done. Estimated blood loss was minimal. The entire examined stomach was normal. The examined duodenum was normal. Impression: - No gross lesions in the entire esophagus. Biopsied. - Normal stomach. - Normal examined duodenum. Recommendation: - Discharge patient to home. - Resume previous diet. - Continue present medications. - Await pathology results. Procedure Code(s): --- Professional --- 24722, Esophagogastroduodenoscopy, flexible, transoral; with biopsy, single or multiple CPT copyright 2021 [employer]. All rights reserved. The codes documented in this report are preliminary and upon [employer] review may be revised to meet current compliance requirements. Julio Hackett DO 06/28/2024 7:26:23 AM This report has been signed electronically. Number of Addenda: 0 Note Initiated On: 06/28/2024 7:07 AM
--- NOTE | 2024-06-28 07:27 | OP.CCLET_ITS ---
06/28/2024 Yovany Rios [address] [place] [address] Re : Upper GI endoscopy procedure for Larry Stacy Dear Dr. Rios This procedure was performed on Friday, June 28, 2024. My impressions and recommendations are as follows: Impressions : - No gross lesions in the entire esophagus. Biopsied. - Normal stomach. - Normal examined duodenum. Recommendations : - Discharge patient to home. - Resume previous diet. - Continue present medications. - Await pathology results. My findings are described in the full procedure note, which is enclosed. If I can be of further assistance, please feel free to contact me at . Sincerely, Julio Hackett, 06/28/2024 7:26:23 AM This report has been signed electronically.
--- NOTE | 2024-06-28 07:35 | PCM.POST.ANE ---
Anesthesia: Postop Eval I Current Vital Signs Temperature: 97.3 F Pulse Rate: 54 Blood Pressure: 92/60 Respiratory Rate: 14 Pulse Ox: 97 Oxygen Delivery Method: Room Air Assessment Airway patent: Yes Spontaneous unlabored respirations: Yes Mental status: Asleep nausea: No Vomiting: No Anesthesia Complication: No Fluid Hydration Crystalloid volume administer (ml): 300 Total IV fluid infused: 300 Progress Note Anesthesia document: Postop Eval 1 completed: Yes
--- NOTE | 2024-06-28 08:28 | PCM.POSTANE2 ---
Anesthesia Postop Eval I Sum Postop Eval Completion status Anesthesia document: Postop Eval 1 completed: Yes Anesthesia Postop Eval I Summary Anesthesia Postop Eval I Summary: Anesthesia Postop Eval I: Assessment Summary Airway patent Yes 06/28/24 07:36 [email or web address] Spontaneous unlabored Yes 06/28/24 07:36 [email or web address] respirations Mental status Asleep 06/28/24 07:36 [email or web address] nausea No 06/28/24 07:36 [email or web address] Vomiting No 06/28/24 07:36 [email or web address] Anesthesia Postop Eval I: Fluid Summary Crystalloid volume administer 300 06/28/24 07:36 [email or web address] (ml) Colloids volume administered ( ml) Blood Product volume administered (ml) Total IV fluid infused 300 06/28/24 07:36 [email or web address] Anesthesia Postop Eval I: Summary Notes Anesthesia Complication No 06/28/24 07:36 [email or web address] Anesthesia Complication Comment: Post-operative progress note Anesthesia: Postop Eval II Evaluation Mental status: Awake and Calm Pain Level: 0 nausea: No Vomiting: No Complications Anesthesia Complication: No
== END 2024-06-28 08:04 | disposition home or self-care (01) ==
LOC: EN 05:53 → AC 05:54
PROVIDERS: PCP Family Medicine; Referring Provider Family Medicine; Visit Provider Internal Medicine Gastroenterology
PROC: 0DJ08ZZ Inspection of Upper Intestinal Tract, Via Natural or Artificial Opening Endoscopic (ICD-10-PCS; CPT 43235; principal; 2024-06-28 06:55)
DX: K21.00 Gastro-esophageal reflux disease with esophagitis, without bleeding (principal); J44.9 Chronic obstructive pulmonary disease, unspecified; R13.12 Dysphagia, oropharyngeal phase; R07.9 Chest pain, unspecified; E78.5 Hyperlipidemia, unspecified; I25.10 Atherosclerotic heart disease of native coronary artery without angina pectoris; Z79.82 Long term (current) use of aspirin; Z79.899 Other long term (current) drug therapy
CPT/HCPCS: 43239; 88305; J2405

== ENCOUNTER → 2024-08-31 | Outpatient (CLI) | payer MEDICARE, OTHER, SELFPAY ==
[2024-08-31 12:09] LABS: Hematocrit 40.6 % (40-54); Hemoglobin 13.5 g/dL (13.0-16.5); Immature Granulocytes Count 0.010 X10^3/uL (0.0-0.0); Mean Corp Hgb Conc 33.3 g/dL (32-36); Mean Corpuscular Volume 97.8 fL (80-94); Mean Platelet Vol. 8.8 fl (6.2-12.0); NRBC Flagged by Analyzer 0 % (0-5); Platelet Count 232 K/mm3 (150-450); RBC Distribution Width CV 13.2 % (11.6-14.6); RBC Distribution Width SD 47.2 fl (35.1-43.9); Red Blood Count 4.15 M/mm3 (4.6-6.2); White Blood Count 3.3 K/mm3 (4.4-11.0)
[2024-08-31 12:46] LABS: AST(SGOT) 27 U/L (<=37); Alanine Aminotransfer ALT/SGPT 24 U/L (<=46); Albumin, Serum 4.2 g/dL (3.4-4.8); Alkaline Phosphatase 72 U/L (40-129); Anion Gap 11 (5-15); BUN 19 mg/dL (4-19); BUN/Creat Ratio 22.5 RATIO (10-20); Calcium,Total 9.0 mg/dL (7.6-11.0); Carbon Dioxide 23.2 mmol/L (21.0-32.0); Chloride 103 mmol/L (98-108); Cholesterol 151 mg/dL (<=200); Globulin 2.7 g/dL (2.2-4.2); Glucose 107 mg/dL (70-99); Low Density Lipoprotein Calc. 83 mg/dL; PSA,Total - Annual Screen 2.12 ng/mL (0.02-4.00); Potassium 4.3 mmol/L (3.3-5.1); Triglycerides 105 mg/dL; Very Low Density Lipoprotein 21 mg/dL (5-40); cholesterol:hdl ratio screen 3.23
== END | disposition home or self-care (01) ==
LOC: MTLAB 08:58
PROVIDERS: PCP Family Medicine; Referring Provider Family Medicine; Visit Provider Family Medicine
DX: E78.5 Hyperlipidemia, unspecified (principal); Z12.5 Encounter for screening for malignant neoplasm of prostate
CPT/HCPCS: 36415; 80053; 80061; 84153; 85025; G0103